=== PATIENT | male | born 1965 | race Caucasian/White ===

== ENCOUNTER 2016-08-02 08:03 | Outpatient (CLI) | payer BC | END 2016-08-02 08:04 | disposition home or self-care (01) | DX: E55.9 Vitamin D deficiency, unspecified (principal); I10 Essential (primary) hypertension; E03.9 Hypothyroidism, unspecified; R68.82 Decreased libido ==

== ENCOUNTER 2017-11-07 07:49 | Outpatient (CLI) | payer BC ==
[2017-11-07 12:01] LABS: BASOPHILS # (AUTO) 0.1 10^3/uL (0.0-0.1); EOSINOPHILS # (AUTO) 0.7 10^3/uL (0.0-0.7); EOSINOPHILS % (AUTO) 7.2 %; HGB - HEMOGLOBIN 15.6 g/dL (14.0-18.0); LYMPHOCYTES # (AUTO) 2.7 10^3/uL (1.5-3.5); LYMPHOCYTES % (AUTO) 26.5 %; MEAN CORPUSCULAR HEMOGLOBIN 30.6 pg (27.0-31.0); MEAN CORPUSCULAR HGB CONC 34.4 g/dL (32.0-36.0); MEAN CORPUSCULAR VOLUME 88.9 fL (80.0-94.0); MEAN PLATELET VOLUME 9.6 fL (7.4-11.4); MONOCYTES # (AUTO) 0.7 10^3/uL (0.0-1.0); MONOCYTES % (AUTO) 7.2 %; NEUTROPHILS % (AUTO) 58.1 %; PLT - PLATELET COUNT 439 10^3/uL (130-450); RED CELL DISTRIBUTION WIDTH 13.7 % (12.0-15.0); WHITE BLOOD COUNT 10.3 x10^3/uL (4.8-10.8)
[2017-11-07 12:19] LABS: ALBUMIN 4.4 g/dL (3.2-5.5); ALBUMIN/GLOBULIN RATIO 1.3 (1.0-2.2); BILIRUBIN,TOTAL 0.5 mg/dL (0.2-1.0); CALCIUM 9.2 mg/dL (8.5-10.3); CREATININE 0.8 mg/dL (0.6-1.2); TOTAL PROTEIN 7.7 g/dL (6.7-8.2)
[2017-11-07 12:31] LABS: PLATELET ESTIMATE, MANUAL NORMAL (130-450,000) (NORMAL); PLATELET MORPHOLOGY 1+ GIANT PLATELETS (NORMAL); RBC MORPHOLOGY (MULTIPLE) NORMAL APPEARANCE (NORMAL)
[2017-11-07 12:36] LABS: THYROID STIMULATING HORMONE 1.84 uIU/mL (0.34-5.60)
[2017-11-07 12:39] LABS: FREE T4 (FREE THYROXINE) 0.86 ng/dL (0.58-1.64)
== END 2017-11-07 07:50 | disposition home or self-care (01) ==
LOC: LAB.F 07:49
PROVIDERS: ATTEND Physician Assistant
DX: F41.9 Anxiety disorder, unspecified (principal); R68.82 Decreased libido; G47.00 Insomnia, unspecified
CPT/HCPCS: 36415; 80053; 81599; 84402; 84403; 84439; 84443; 85025

== ENCOUNTER 2018-09-09 11:23 | Outpatient (CLI) | payer BC | END 2018-09-09 11:24 | disposition home or self-care (01) | LOC: RT 11:23 | PROVIDERS: ATTEND Physician Assistant | DX: Z13.6 Encounter for screening for cardiovascular disorders (principal) | CPT/HCPCS: 93005 ==

== ENCOUNTER 2018-11-19 17:51 | Outpatient (CLI) | payer BC ==
--- NOTE | 2018-11-20 16:40 | XRAY Report ---
Reason: CERVICALGIA,LOW BACK PAIN Procedure Date: 11/19/2018 Accession Number: [id number] / [id number] Procedure: XR - Cervical Spine 2 View CPT Code: FULL RESULT: EXAM: CERVICAL SPINE RADIOGRAPHY EXAM DATE: 11/19/2018 06:11 PM. CLINICAL HISTORY: CERVICALGIA,LOW BACK PAIN. COMPARISONS: None available. TECHNIQUE: 3 views. FINDINGS: Alignment: Alignment within normal limits. Bones: The cervical vertebral bodies and posterior elements are well visualized from the skull base through C7-T1. No acute fractures are evident. There is partial fusion of C2 and C3. Disks: There is disk space narrowing with endplate sclerosis and small anterior endplate osteophytes at C5-C6 and C6-C7 levels. Facets: No significant degenerative disease. Soft Tissues: Normal. No prevertebral soft tissue swelling. The visualized lung apices are clear. IMPRESSION: 1. Degenerative disk disease at C5-C6 and C6-C7. 2. Partial fusion of C2 and C3, probably congenital. RADIA
--- NOTE | 2018-11-20 16:41 | XRAY Report ---
Reason: CERVICALGIA,LOW BACK PAIN Procedure Date: 11/19/2018 Accession Number: [id number] / [id number] Procedure: XR - Lumbar Spine 2 View CPT Code: FULL RESULT: EXAM: LUMBOSACRAL SPINE RADIOGRAPHY EXAM DATE: 11/19/2018 06:11 PM. CLINICAL HISTORY: CERVICALGIA,LOW BACK PAIN. COMPARISONS: None available. TECHNIQUE: 2 views. FINDINGS: Alignment: There is a slight convex left curvature with Garcia angle measuring approximately 6 degrees from the top of L1-L2 the bottom of L4. Bones: Five ggb-bir-pfydrig lumbar vertebral bodies are present. No fractures or bone lesions. Disks: Mild disk space narrowing at L5-S1. Facets: Mild facet hypertrophy at L4-L5 and L5-S1. Sacroiliac Joints: Unremarkable. Soft Tissues: Normal. The visualized bowel gas pattern is normal. IMPRESSION: 1. There is a slight convex left scoliotic curvature. 2. Mild degenerative disk disease and facet hypertrophy and lower lumbar spine. RADIA
== END 2018-11-19 17:52 | disposition home or self-care (01) ==
LOC: DI 17:51
PROVIDERS: ATTEND Physician Assistant
DX: M50.322 Other cervical disc degeneration at C5-C6 level (principal); M47.816 Spondylosis without myelopathy or radiculopathy, lumbar region; M51.37 Other intervertebral disc degeneration, lumbosacral region; M47.817 Spondylosis without myelopathy or radiculopathy, lumbosacral region
CPT/HCPCS: 72040; 72100

== ENCOUNTER 2019-03-01 10:20 | Outpatient (CLI) | payer BC ==
--- NOTE | 2019-03-03 00:42 | XRAY Report ---
Reason: MODERATE TO PERSISTANT ASTHMA Procedure Date: 03/01/2019 Accession Number: [id number] / [id number] Procedure: XR - Chest 2 View X-Ray CPT Code: 05854 FULL RESULT: EXAM: CHEST RADIOGRAPHY EXAM DATE: 03/01/2019 10:45 AM. CLINICAL HISTORY: MODERATE TO PERSISTANT ASTHMA. COMPARISON: None. TECHNIQUE: 2 views. FINDINGS: Lungs/Pleura: Minimal right base linear atelectasis or scarring. No consolidation, airspace disease, pleural effusion or pneumothorax. Posterior costophrenic angle excluded on the lateral view. Mediastinum: Heart and mediastinal contours are unremarkable. Other: A few mid T-spine anterior wedging of the vertebral bodies, appears chronic. IMPRESSION: No acute cardiopulmonary disease seen. RADIA
== END 2019-03-01 10:21 | disposition home or self-care (01) ==
LOC: DI 10:20
PROVIDERS: ATTEND Pediatrics
DX: J45.40 Moderate persistent asthma, uncomplicated (principal)
CPT/HCPCS: 71046

== ENCOUNTER 2019-03-11 14:10 | Outpatient (CLI) | payer BC | END 2019-03-11 14:11 | disposition short-term general hospital (02) | LOC: EMS 14:10 | PROVIDERS: ATTEND Surgery | DX: S06.9X9A Unspecified intracranial injury with loss of consciousness of unspecified duration, initial encounter (principal); S01.90XA Unspecified open wound of unspecified part of head, initial encounter; S81.802A Unspecified open wound, left lower leg, initial encounter; V29.40XA Motorcycle driver injured in collision with unspecified motor vehicles in traffic accident, initial encounter; Y92.413 State road as the place of occurrence of the external cause | CPT/HCPCS: A0425; A0433 ==

== ENCOUNTER 2021-07-17 18:07 | Outpatient (CLI) | payer OTHER | END 2021-07-17 18:08 | disposition critical access hospital (66) | LOC: EMS 18:07 | DX: M54.50 Low back pain, unspecified (principal); M79.605 Pain in left leg; W19.XXXA Unspecified fall, initial encounter; Y92.002 Bathroom of unspecified non-institutional (private) residence as the place of occurrence of the external cause | CPT/HCPCS: A0425; A0427 ==

== ENCOUNTER 2021-07-17 18:36 | Emergency (ER) | payer BC, OTHER ==
[2021-07-17] MEDS ORDERED: diazePAM INJ 5 MG/ML SYRINGE IVP STA (18:57)
[2021-07-17] MEDS ORDERED: KETOROLAC 30 MG/ML VIAL IVP STA (18:57)
--- NOTE | 2021-07-17 19:00 | ED Physician Documentation ---
History of Present Illness - Stated complaint Stated Complaint: LOWER BACK PAIN, CAN'T MOVE - Chief complaint Chief Complaint: Neuro - History obtained from History obtained from: Patient, EMS - History of Present Illness Timing: Today Pain level max: 10 Pain level now: 10 - Additonal information Additional information: Patient is a 56-year-old male who presents to the emergency department with back pain. He states that his short-term memory is poor secondary to a traumatic brain injury several years ago. His reported to EMS that she found him on the ground in the bathroom unable to get up. She states that she helped him up and placed him back into bed. He has been lying in bed all day but has been unable to get out of bed secondary to pain. He states he took a dose of oxycodone at home without relief. He states that the pain is radiating down the left leg. No loss of bowel or bladder control. Worse with movement, better with rest. Denies any head, neck, back pain other than the low back. No fevers. No recent illnesses. No chest pain. No shortness of breath. No IV drug use Review of Systems Ten Systems: 10 systems reviewed and negative Constitutional: denies: Fever, Chills Respiratory: denies: Cough GI: denies: Nausea, Vomiting, Diarrhea : denies: Dysuria, Frequency, Unable to Void, Incontinent Skin: denies: Rash Musculoskeletal: denies: Neck pain Neurologic: denies: Focal weakness, Numbness PD PAST MEDICAL HISTORY - Past Medical History Cardiovascular: Hypertension, Pulmonary embolism Respiratory: Asthma Neuro: Head injury, Other GI: GERD Psych: Depression, Anxiety - Past Surgical History Past Surgical History: Yes General: Splenectomy Ortho: Spine surgery, Other - Present Medications Home Medications: Ambulatory Orders Medication Instructions Recorded Confirmed Acetaminophen [Tylenol Extra 500 mg PO TID 08/06/19 08/06/19 Strength] Ascorbic Acid [Vitamin C] 500 mg PO DAILY 08/06/19 08/06/19 Fluticasone/Vilanterol [Breo 1 puffs PO DAILY 08/06/19 08/06/19 Ellipta 100-25 Mcg INH] Melatonin 6 mg PO QPM 08/06/19 08/06/19 Montelukast [Singulair] 10 mg PO DAILY 08/06/19 08/06/19 Omeprazole 20 mg PO DAILY 08/06/19 08/06/19 QUEtiapine [SEROquel] 200 mg PO QPM 08/06/19 08/06/19 Tiotropium [place] [Spiriva] 1 puffs PO DAILY 08/06/19 08/06/19 amLODIPine [Norvasc] 5 mg PO DAILY 08/06/19 08/06/19 - Allergies Allergies/Adverse Reactions: Allergies Allergy/AdvReac Type Severity Reaction Status Date / Time Skin prep AdvReac Rash Uncoded 08/06/19 09:40 - Social History Does the pt smoke?: Yes Smoking Status: Former smoker Does the pt drink ETOH?: Yes Does the pt have substance abuse?: No - Immunizations Immunizations are current?: Yes - POLST Patient has POLST: No PD ED PE NORMAL - Vitals Vital signs reviewed: Yes - General General: Alert and oriented X 3, No acute distress - HEENT HEENT: PERRL, Moist mucous membranes - Neck Neck: Supple, no meningeal sign - Cardiac Cardiac: RRR - Respiratory Respiratory: No respiratory distress, Clear bilaterally - Abdomen Abdomen: Normal bowel sounds, Soft, Non tender, Non distended - Back Back: No spinal TTP, Other (No midline tenderness to palpation or percussion. No step-off or deformity. Paraspinal spasm left lower lumbar.) - Derm Derm: Warm and dry - Extremities Extremities: No deformity - Neuro Neuro: Alert and oriented X 3, manager bar 2-12 intact, No motor deficit, No sensory deficit, Other (Normal bilateral lower extremity patellar and ankle jerk reflexes. Normal great toe extension bilaterally. no saddle anesthesia) Eye Opening: Spontaneous Motor: Obeys Commands Verbal: Oriented GCS Score: 15 - Psych Psych: Normal mood, Normal affect Results - Vitals Vitals: Vital Signs - 24 hr 07/17/21 07/17/21 07/17/21 18:41 19:27 19:30 Temperature 37.2 C Heart Rate 82 78 76 Respiratory 29 H 23 27 H Rate Blood Pressure 128/88 H 125/91 H 124/86 H O2 Saturation 92 94 93 07/17/21 07/17/21 07/17/21 20:00 20:30 21:00 Temperature Heart Rate 75 78 74 Respiratory 23 22 23 Rate Blood Pressure 115/88 H 130/91 H 122/82 H O2 Saturation 92 92 93 07/17/21 07/17/21 07/17/21 21:40 22:00 22:30 Temperature Heart Rate 80 75 75 Respiratory 20 24 22 Rate Blood Pressure 129/89 H 128/94 H 134/89 H O2 Saturation 94 92 91 L 07/17/21 07/17/21 07/17/21 23:01 23:18 23:30 Temperature Heart Rate 77 66 Respiratory 17 17 Rate Blood Pressure 137/97 H 134/88 H O2 Saturation 91 L 94 96 07/18/21 07/18/21 07/18/21 00:00 00:30 02:00 Temperature Heart Rate 72 68 66 Respiratory 19 17 15 Rate Blood Pressure 132/80 H 119/76 O2 Saturation 96 98 96 07/18/21 07/18/21 02:30 03:00 Temperature Heart Rate 66 67 Respiratory 17 17 Rate Blood Pressure 125/85 H 118/76 O2 Saturation 96 96 Oxygen O2 Source Nasal cannula - Labs Labs: Laboratory Tests 07/17/21 07/17/21 07/17/21 00:02 00:02 00:02 WBC 19.1 H RBC 5.02 Hgb 15.0 Hct 44.8 MCV 89.2 MCH 29.9 MCHC 33.5 RDW 14.6 Plt Count 359 MPV 10.3 Neut # (Auto) 17.5 H Lymph # (Auto) 1.0 L [place] # (Auto) 0.3 Eos # (Auto) 0.1 Baso # (Auto) 0.0 Absolute Nucleated RBC 0.00 Nucleated RBC % 0.0 PT 12.7 H INR 1.1 Sodium 136 Potassium 4.1 Chloride 102 Carbon Dioxide 24 Anion Gap 10.0 BUN 14 Creatinine 0.8 Estimated GFR (MDRD) 100 Glucose 162 H Calcium 8.9 Total Bilirubin 1.1 H AST 68 H ALT 45 Alkaline Phosphatase 84 Total Protein 8.0 Albumin 4.1 Globulin 3.9 Albumin/Globulin Ratio 1.1 Nasal Adenovirus (PCR) Nasal B. parapertussis DNA (PCR) Nasal Coronavir 229E PCR Nasal Coronavir HKU1 PCR Nasal Coronavir NL63 PCR Nasal Coronavir OC43 PCR Nasal Enterovir/Rhinovir PCR Nasal Influenza B PCR Nasal Influenza A PCR Nasal Parainfluen 1 PCR Nasal Parainfluen 2 PCR Nasal Parainfluen 3 PCR Nasal Parainfluen 4 PCR Nasal RSV (PCR) Nasal B.pertussis DNA PCR Nasal C.pneumoniae (PCR) Yon Human Metapneumo PCR Nasal M.pneumoniae (PCR) Nasal SARS-CoV-2 (PCR) Blood Type Antibody Screen 07/17/21 07/18/21 00:02 01:27 WBC RBC Hgb Hct MCV MCH MCHC RDW Plt Count MPV Neut # (Auto) Lymph # (Auto) [place] # (Auto) Eos # (Auto) Baso # (Auto) Absolute Nucleated RBC Nucleated RBC % PT INR Sodium Potassium Chloride Carbon Dioxide Anion Gap BUN Creatinine Estimated GFR (MDRD) Glucose Calcium Total Bilirubin AST ALT Alkaline Phosphatase Total Protein Albumin Globulin Albumin/Globulin Ratio Nasal Adenovirus (PCR) NOT DETECTED Nasal B. parapertussis DNA (PCR) NOT DETECTED Nasal Coronavir 229E PCR NOT DETECTED Nasal Coronavir HKU1 PCR NOT DETECTED Nasal Coronavir NL63 PCR NOT DETECTED Nasal Coronavir OC43 PCR NOT DETECTED Nasal Enterovir/Rhinovir PCR NOT DETECTED Nasal Influenza B PCR NOT DETECTED Nasal Influenza A PCR NOT DETECTED Nasal Parainfluen 1 PCR NOT DETECTED Nasal Parainfluen 2 PCR NOT DETECTED Nasal Parainfluen 3 PCR NOT DETECTED Nasal Parainfluen 4 PCR NOT DETECTED Nasal RSV (PCR) NOT DETECTED Nasal B.pertussis DNA PCR NOT DETECTED Nasal C.pneumoniae (PCR) NOT DETECTED Yon Human Metapneumo PCR NOT DETECTED Nasal M.pneumoniae (PCR) NOT DETECTED Nasal SARS-CoV-2 (PCR) NOT DETECTED Blood Type A POSITIVE Antibody Screen NEGATIVE - Rads (name of study) Lumbar spine x-ray Radiology: Final report received, EMP read contemporaneously, See rad report (No acute abnormality) PD MEDICAL DECISION MAKING - ED course Complexity details: reviewed results, re-evaluated patient, considered differential (No cauda equina, no spinal epidural abscess, no fracture, no aortic dissection or evidence of aneursym rupture), d/w patient ED course: No acute findings on x-ray. Symptoms consistent with sciatica. No evidence of cauda equina, epidural abscess. Patient is continuing to have back pain. Patient will be signed out to Dr. Larsen for further evaluation and care. Please see his note for final disposition. This document was made in part using voice recognition software. While efforts are made to proofread this document, sound alike and grammatic Departure - Departure Disposition: 02 Transfer Acute Care Hosp Clinical Impression: Sciatica of left side Condition: Good Discharge Date/Time: 07/18/21 03:42
[2021-07-17] MEDS ORDERED: DEXAMETHASONE 10 MG/ML VIAL IVP STA (19:41)
[2021-07-17] MEDS ORDERED: MORPHINE 2 MG/ML CARPUJECT IVP STA (19:41)
--- NOTE | 2021-07-17 21:14 | XRAY Report ---
PROCEDURE: Lumbar Spine 2 View INDICATIONS: fall, back pain, h/o back fractures TECHNIQUE: 3 views of the lumbar spine were acquired. COMPARISON: None. FINDINGS: Exam limited by patient body habitus and bowel gas. There is no obvious loss of vertebral body height on the lateral views of the lumbar spine. Alignment is normal. IMPRESSION: No plain radiographic evidence of fracture. If there is continued clinical concern, CT o f the lumbar spine recommended. Reviewed by: Emmett Crump MD on 07/17/2021 9:13 PM PST Approved by: Emmett Crump MD on 07/17/2021 9:13 PM PST Station ID: [id number]
[2021-07-17] MEDS ORDERED: HYDROmorphone 1 MG/ML CARPUJECT IVP STA ×2 (21:47→22:40)
--- NOTE | 2021-07-17 23:26 | CT Report ---
PROCEDURE: LUMBAR SPINE WO INDICATIONS: back injury TECHNIQUE: Noncontrast 3 mm thick sections acquired from the T12 level to the sacrum. Sagittal and coronal refo rmats were constructed. For radiation dose reduction, the following was used: automated exposure co ntrol, adjustment of mA and/or kV according to patient size. COMPARISON: None. FINDINGS: Acute compression fractures at L3, T12, and T11, all with less than 20% height loss. No significant o sseous retropulsion. There is also a possible acute superior endplate compression fracture at L5 with less than 10% height loss. Partially visualized left iliac wing fracture which is displaced. Partially visualized fluid versus hemorrhage versus fat stranding in the left abdomen and left retrop eritoneum. Partially visualized nondilated small bowel loops measuring up to 4.8 cm. IMPRESSION: Acute compression fractures at L3, T12, and T11 and possibly at L5. Partially visualized displaced left iliac wing fracture. Partially visualized hemorrhage versus fluid versus fat stranding in the left mid abdomen and left re troperitoneum. Partially visualized nondilated small bowel loops measuring up to 4.[address] of the chest, abdomen, and pelvis with IV contrast recommended given the multiple injuries and inj ury mechanism. Consider a CT of the head and cervical spine also. Reviewed by: Emmett Crump MD on 07/17/2021 11:24 PM PST Approved by: Emmett Crump MD on 07/17/2021 11:24 PM PST Station ID: [id number]
--- NOTE | 2021-07-17 23:32 | ED Physician Documentation ---
ED Addendum - Addendum Addendum: 07/17/21 23:[address] Rodriguez at shift change. Briefly this is a 56-year-old gentleman with history of remote multisystem trauma who presents with severe back pain after a fall. On my evaluation he had already had x-rays which were unremarkable. He was having a lot of pain and basically could not move due to the pain and was administered divided doses of pain medications with minimal improvement. I sent him over for a CT of the lumbar spine showing acute compression fractures of L3, T12, T11, and possibly T5. There was a partially visualized displaced the left iliac wing fracture and concern for left abdominal and left retroperitoneal hemorrhage. CT "mcdonald scan" ordered as well as labs. 07/18/21 01:25 My "wet read" of his CTs demonstrates a left acetabular fracture, left retroperitoneal hematoma though looks stable from prior L-spine CT, left iliac fracture, multiple spinal fractures. My suspicion is since the patient does not actually remember falling it must of been a little more of a major mechanism than initially thought on arrival. I discussed this with his by phone who said she basically just found him on the ground and did not witness the fall. I discussed his disposition to [facility] for multisystem trauma. And she was agreeable. Of note he did have a contrast extravasation into the right antecubital fossa during CT. I am keeping an eye on this but does not look tense, just mildly red at this point. 07/18/21 01:53 Accepted to [facility] ED by Dr. León Blanton at approximately 1:53 AM and cobras are completed. He is stable for transport. Final CT reads showing both retroperitoneal and intra-abdominal free fluid and acute compression fractures of T11, T12, L3, and L5 without more than 20% height loss or spinal stenosis/retropulsion, he also has acute displaced fractures of the left iliac bone, left acetabulum and left superior pubic ramus. Disposition: Transferred to [facility] trauma center Condition guarded but stable Diagnoses: 1. Multiple spinal fractures 2. Left acetabular fracture 3. Left iliac fracture 4. Left retroperitoneal hematoma. 07/18/21 01:58 07/18/21 04:56
[2021-07-18 00:06] LABS: BASOPHILS % (AUTO) 0.2 %; EOSINOPHILS # (AUTO) 0.1 10^3/uL (0.0-0.7); EOSINOPHILS % (AUTO) 0.5 %; HCT - HEMATOCRIT 44.8 % (42.0-52.0); LYMPHOCYTES % (AUTO) 5.4 %; MEAN CORPUSCULAR HEMOGLOBIN 29.9 pg (27.0-31.0); MEAN CORPUSCULAR HGB CONC 33.5 g/dL (32.0-36.0); MEAN CORPUSCULAR VOLUME 89.2 fL (80.0-94.0); MEAN PLATELET VOLUME 10.3 fL (7.4-11.4); MONOCYTES # (AUTO) 0.3 10^3/uL (0.0-1.0); MONOCYTES % (AUTO) 1.5 %; NEUTROPHILS # (AUTO) 17.5 10^3/uL (1.5-6.6); NEUTROPHILS % (AUTO) 91.9 %; PLT - PLATELET COUNT 359 10^3/uL (130-450); RED BLOOD COUNT 5.02 10^6/uL (4.70-6.10); RED CELL DISTRIBUTION WIDTH 14.6 % (12.0-15.0); WHITE BLOOD COUNT 19.1 x10^3/uL (4.8-10.8)
[2021-07-18 00:10] LABS: INR 1.1 (0.8-1.2); PT - PROTHROMBIN TIME 12.7 secs (9.9-12.6)
[2021-07-18 00:20] LABS: ALBUMIN 4.1 g/dL (3.2-5.5); ALBUMIN/GLOBULIN RATIO 1.1 (1.0-2.2); BILIRUBIN,TOTAL 1.1 mg/dL (0.2-1.0); CALCIUM 8.9 mg/dL (8.5-10.3); CREATININE 0.8 mg/dL (0.6-1.2); POTASSIUM 4.1 mmol/L (3.5-5.0)
[2021-07-18] MEDS ORDERED: iohexoL-300 100 ML VIAL ONE (00:43)
[2021-07-18] MEDS ORDERED: iohexoL-300 100 ML VIAL IVP ONE (01:34)
--- NOTE | 2021-07-18 01:47 | CT Report ---
PROCEDURE: CHEST W INDICATIONS: multisystem trauma CONTRAST: IV CONTRAST: Isovue 300 ml: 100 PO CONTRAST: *NO PO CONTRAST TECHNIQUE: After the administration of intravenous contrast, 1 mm axial images were acquired from the pulmonary apices through the posterior costophrenic angles. Axial 5 mm soft tissue kernel reconstructions were performed as well as 8 mm axial MIP and coronal and sagittal 5 mm reformations. For radiation dose reduction, the following was used: automated exposure control, adjustment of mA and/or kV according to patient size. COMPARISON: None. FINDINGS: Image quality: Excellent. Lungs and pleura: Bibasilar and posterior dependent atelectasis. No acute air space opacities. No p leural effusions or pneumothorax. Central and peripheral airways are patent and normal in caliber. Mediastinum: Heart size is normal. No pericardial effusion. No mediastinal or hilar adenopathy by size criteria. Thoracic aorta and central pulmonary arteries are normal in size. Esophagus is aure l in caliber. No hiatal hernia. Bones and chest wall: Acute compression fractures of the T11 and T12 vertebral bodies otherwise intac t bones. IMPRESSION: T11 and T12 compression fractures, both acute and without significant associated retropulsion or spin al canal stenosis. No other acute fracture or acute finding in the chest. Reviewed by: Emmett Crump MD on 07/18/2021 1:45 AM PST Approved by: Emmett Crump MD on 07/18/2021 1:45 AM PST Station ID: [id number]
--- NOTE | 2021-07-18 01:54 | CT Report ---
PROCEDURE: Abdomen/Pelvis W INDICATIONS: multisystem trauma CONTRAST: IV CONTRAST: Isovue 300 ml: 100 PO CONTRAST: *NO PO CONTRAST TECHNIQUE: After the administration of intravenous contrast, 5 mm thick sections acquired from the diaphragms to the symphysis. 5 mm thick coronal and sagittal reformats were acquired. For radiation dose reducti on, the following was used: automated exposure control, adjustment of mA and/or kV according to aurelio ent size. COMPARISON: None. FINDINGS: Acute displaced fracture of the left iliac bone involving the left iliac wing, extending inferiorly a nd ramifying in the left acetabulum into a complex and comminuted left acetabular fracture. Fracture plane also extends into the superior pubic ramus on the left. There is a remote left inferior pubic r amus fracture. No right-sided pelvic fracture. The sacrum is intact. Acute compression deformities at T11, T12, L3, and L5, none was greater than 20% height loss or signi ficant associated osseous retropulsion. Intermediate density fluid collection in the left hemipelvis is presumably related to the acetabular fracture. Adjacent fat stranding is also presumably related. An acute enteric/intestinal injury canno t be strictly excluded. There is no pneumoperitoneum. The duodenum is mildly dilated measuring up to 5 cm. Remaining enteric tract is normal. No acute solid organ injury identified. IMPRESSION: Acute compression fractures at T11, T12, L3, and L5, none with greater than 20% height loss or associ ated retropulsion/spinal canal stenosis. Acute displaced fractures of the left iliac bone, left acetabulum, and left superior pubic ramus. Intermediate density fluid collection in the left hemipelvis with a small volume of free fluid in the central inferior abdomen. Some of this is likely related to the pelvic fracture although some of the free fluid and fat stranding is definitely intraperitoneal and raises concern for an acute occult radha wel injury. Correlate with injury mechanism and any abdominal point tenderness. Reviewed by: Emmett Crump MD on 07/18/2021 1:53 AM PST Approved by: Emmett Crump MD on 07/18/2021 1:53 AM PST Station ID: [id number]
--- NOTE | 2021-07-18 01:55 | CT Report ---
PROCEDURE: HEAD WO INDICATIONS: Multisystem trauma TECHNIQUE: Noncontrast 4.5 mm thick angled axial sections acquired from the foramen magnum to the vertex. For r adiation dose reduction, the following was used: automated exposure control, adjustment of mA and/or kV according to patient size. COMPARISON: None. FINDINGS: Image quality: Excellent. CSF spaces: Basal cisterns are patent. No extra-axial fluid collections. Ventricles are normal in size and shape. 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 No midline shift. No intracran ial masses or hemorrhage. Durán-white matter interface is normal. Skull and face: Calvarium and visualized facial bones are intact, without suspicious lesions. Sinuses: Visualized sinuses and mastoids are clear. IMPRESSION: No acute intracranial abnormality. Reviewed by: Emmett Crump MD on 07/18/2021 1:53 AM PST Approved by: Emmett Curmp MD on 07/18/2021 1:53 AM [facility] Station ID: [id number]
--- NOTE | 2021-07-18 01:56 | CT Report ---
PROCEDURE: CERVICAL SPINE WO INDICATIONS: multisystem trauma TECHNIQUE: Noncontrast 3 mm thick sections acquired from the skull base to the T4 level. Sagittal and coronal r eformats were then constructed. For radiation dose reduction, the following was used: automated exp osure control, adjustment of mA and/or kV according to patient size. COMPARISON: None. FINDINGS: C2-T2 posterior fixation changes by means of bilateral rods and pedicle screws. No acute complicating hardware feature. No acute fracture or malalignment. Extensive moderate degenerative changes. IMPRESSION: No CT evidence of acute traumatic cervical spine injury. Reviewed by: Emmett Crump MD on 07/18/2021 1:55 AM PST Approved by: Emmett Crump MD on 07/18/2021 1:55 AM [facility] Station ID: [id number]
[2021-07-18 02:20] LABS: B. PARAPERTUSSIS- RESP PCR PAN NOT DETECTED; B. PERTUSSIS- RESP PCR PANEL NOT DETECTED; C. PNEUMONIAE- RESP PCR PANEL NOT DETECTED; CORONAVIRUS 229E-RESP PCR NOT DETECTED; CORONAVIRUS HKU1-RESP PCR NOT DETECTED; CORONAVIRUS NL63-RESP PCR NOT DETECTED; CORONAVIRUS OC43-RESP PCR NOT DETECTED; HUMAN METAPNEUMOVIRUS NOT DETECTED; INFLUENZA A- RESP PCR PANEL NOT DETECTED; INFLUENZA B - RESP PCR PANEL NOT DETECTED; M. PNEUMONIAE- RESP PCR PANEL NOT DETECTED; PARAINFLUENZA VIRUS 1 NOT DETECTED; PARAINFLUENZA VIRUS 2 NOT DETECTED; PARAINFLUENZA VIRUS 3 NOT DETECTED; PARAINFLUENZA VIRUS 4 NOT DETECTED; RHINOVIRUS/ENTEROVIRUS NOT DETECTED; RSV- RESP PCR PANEL NOT DETECTED; SARS-CoV-2 -RESP PCR PANEL NOT DETECTED
[2021-07-18 03:21] VITALS: BP 118/76
== END 2021-07-18 03:42 | disposition short-term general hospital (02) ==
LOC: EDUNIT# → ED 18:36
DX: S32.039A Unspecified fracture of third lumbar vertebra, initial encounter for closed fracture (principal); S22.089A Unspecified fracture of T11-T12 vertebra, initial encounter for closed fracture; S32.402A Unspecified fracture of left acetabulum, initial encounter for closed fracture; S32.302A Unspecified fracture of left ilium, initial encounter for closed fracture; S36.892A Contusion of other intra-abdominal organs, initial encounter; S32.592A Other specified fracture of left pubis, initial encounter for closed fracture; W19.XXXA Unspecified fall, initial encounter; M54.32 Sciatica, left side; Z87.891 Personal history of nicotine dependence; Z87.820 Personal history of traumatic brain injury; Z20.822 Contact with and (suspected) exposure to COVID-19
CPT/HCPCS: 0202U; 36415; 70450; 71260; 72100; 72125; 72131; 74177; 80053; 85025; 85610; 86850; 86900; 86901; 96374; 96375; 96376; 99285; J1170; Q9967

== ENCOUNTER 2021-07-18 03:45 | Outpatient (CLI) | payer OTHER | END 2021-07-18 03:46 | disposition short-term general hospital (02) | LOC: EMS 03:45 | PROVIDERS: ATTEND Emergency Medicine | DX: S22.089A Unspecified fracture of T11-T12 vertebra, initial encounter for closed fracture (principal); S32.039A Unspecified fracture of third lumbar vertebra, initial encounter for closed fracture; S32.302A Unspecified fracture of left ilium, initial encounter for closed fracture; W19.XXXA Unspecified fall, initial encounter | CPT/HCPCS: A0425; A0428 ==

== ENCOUNTER 2021-09-17 11:36 | Outpatient (CLI) | payer MEDICARE | END 2021-09-17 11:37 | disposition home or self-care (01) | LOC: LAB.S 11:36 | DX: I82.419 Acute embolism and thrombosis of unspecified femoral vein (principal) | CPT/HCPCS: 36415; 81599; 85613; 85730; 86146; 86147; 86148 ==

== ENCOUNTER 2022-07-26 04:27 | Outpatient (CLI) | payer MEDICARE | END 2022-07-26 04:28 | disposition critical access hospital (66) | LOC: EMS 04:27 | DX: R56.9 Unspecified convulsions (principal) | CPT/HCPCS: A0425; A0429 ==

== ENCOUNTER 2022-07-26 04:55 | Observation (INO) | payer MEDICARE ==
--- NOTE | 2022-07-26 04:55 | ED Physician Documentation ---
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 Patient is unable to contribute reliably to HPI/ROS due to AMS. Later in ED stay, I also obtained HPI from patient's (I contacted her by phone). Patient is brought in for new onset seizure. The HPI information from EMS as well as the is as follows: Patient and his were in bed asleep and approximately 30 to 40 minutes prior to arrival, patient's heard the patient get up to use the bathroom, and then he returned to bed. Patient's states she started to fall back asleep but approximately 15 to 20 minutes after he had returned back to bed, she woke to gurgling noises that the patient was making And she turned on the light and found that the patient was in bed lying on his side unresponsive. She says his eyes were "wide open" but that he was not making any eye contact more purposeful gaze. She says she tried to roll him onto his back but felt that his body was "not relaxed". She called 911 and just that she was doing this, she noted that the patient started to exhibit full body rhythmic shaking; her description is consistent with generalized tonic-clonic seizure. She says the shaking activity lasted approximately 3 to 5 minutes and then stopped spontaneously. EMS arrived and they describe initially sonorous respirations and stable vital signs but patient was unresponsive. As they continue their assessment, the patient started to make purposeful movements; specifically, the patient started to grab at EMS and seemed to be resisting some of their attempts to get him into the ambulance, and on route to the emergency department, they note that he gradually became more awake and alert. Temperature by EMS was 97.8, fingerstick blood sugar was 136. EMS did note that patient was incontinent of urine and feces. Patient noted to be hypoxic for EMS on room air (mid-80s pulse ox), corrects to low/mid 90s with 4 liters NC. On arrival, the oxygen was stopped temporarily to confirm hypoxia, and patient did quickly desaturate to 85 to 86% on room air and thus was restarted on 4 L nasal cannula oxygen; this resulted in a rapid return to 92 to 93% pulse ox. Patient is still confused on arrival to ED; he does not recall events, says he does not take any prescription medications. His chief complaint, and his only complaint, is "pain everywhere". Per my conversation with the patient's , patient does not drink heavily nor on a regular basis; she says he occasionally has a glass of wine with dinner. She confirms that he has no seizure history. He does not have any pulmonary diagnoses, does not use oxygen at home. PD PAST MEDICAL HISTORY - Past Medical History Past Medical History: Yes Cardiovascular: Deep vein thrombosis, Pulmonary embolism Neuro: Other (TBI) - Present Medications Home Medications: Ambulatory Orders Medication Instructions Recorded Confirmed Acetaminophen [Tylenol Extra 500 mg PO TID 08/06/19 08/06/19 Strength] Ascorbic Acid [Vitamin C] 500 mg PO DAILY 08/06/19 08/06/19 Melatonin 6 mg PO QPM 08/06/19 08/06/19 Montelukast [Singulair] 10 mg PO DAILY 08/06/19 08/06/19 Omeprazole 20 mg PO DAILY 08/06/19 08/06/19 QUEtiapine [SEROquel] 200 mg PO QPM 08/06/19 08/06/19 Apixaban [Eliquis] 5 mg PO BID 07/26/22 07/26/22 Gabapentin [Neurontin] 300 mg PO TID 07/26/22 07/26/22 methocarbamoL [Methocarbamol] 500 mg PO TID 07/26/22 07/26/22 - Allergies Allergies/Adverse Reactions: Allergies Allergy/AdvReac Type Severity Reaction Status Date / Time Skin prep AdvReac Rash Uncoded 07/26/22 05:06 - Living Situation Living Situation: reports: With spouse/s.o. Living Arrangement: reports: At home PD ED PE NORMAL - Vitals Vital signs reviewed: Yes - General General: Other (obese male, NAD, confused. awake, alert, oriented x 1 (to self)) - HEENT HEENT: Moist mucous membranes, Other (left anterolateral surface of tongue with bite/abrasion) - Neck Neck: Supple, no meningeal sign, No bony TTP - Cardiac Cardiac: RRR, No murmur - Respiratory Respiratory: No respiratory distress, Other (bibasilar rhonchi; good air flow, no wheezing) - Abdomen Abdomen: Soft, Non tender - Derm Derm: Normal color, Warm and dry - Extremities Extremities: No edema - Neuro Eye Opening: Spontaneous Motor: Obeys Commands Verbal: Confused GCS Score: 14 Results - Vitals Vitals: Vital Signs - 24 hr 07/26/22 07/26/22 07/26/22 04:59 05:09 05:13 Temperature 36.6 C Heart Rate 104 H 96 Respiratory 22 25 H Rate Blood Pressure 139/92 H 136/91 H O2 Saturation 86 L If not protocol 4 : Oxygen Flow, liters/minute 07/26/22 07/26/22 07/26/22 06:47 07:00 08:18 Temperature Heart Rate 91 92 98 Respiratory 12 21 23 Rate Blood Pressure 125/76 111/84 H 120/92 H O2 Saturation 96 94 92 If not protocol 4 4.5 2 : Oxygen Flow, liters/minute 07/26/22 07/26/22 07/26/22 09:30 09:42 09:50 Temperature Heart Rate 102 H 100 Respiratory 20 24 Rate Blood Pressure 130/89 H O2 Saturation 92 87 L 92 If not protocol 2 : Oxygen Flow, liters/minute 07/26/22 10:12 Temperature Heart Rate 97 Respiratory 18 Rate Blood Pressure 131/93 H O2 Saturation 93 If not protocol : Oxygen Flow, liters/minute Oxygen O2 Source Nasal cannula Oxygen Flow Rate 2 - EKG (time done) No standard instances Rate: Rate (enter#) (100) Rhythm: NSR [place]: Normal Intervals: Normal UT QRS: Normal Ischemia: Normal ST segments, Q waves (V1-V3) - Labs Labs: Laboratory Tests 07/26/22 07/26/22 07/26/22 05:02 05:02 05:02 WBC 22.2 H RBC 5.03 Hgb 15.4 Hct 46.5 MCV 92.4 MCH 30.6 MCHC 33.1 RDW 14.8 Plt Count 352 MPV 10.2 Neut # (Auto) Not Reportable Lymph # (Auto) Not Reportable [place] # (Auto) Not Reportable Eos # (Auto) Not Reportable Baso # (Auto) Not Reportable Absolute Nucleated RBC Not Reportable Total Counted 100 Band Neuts % (Manual) 2 Abnorm Lymph % (Manual) 0 Myelocytes % 1 H Nucleated RBC % Not Reportable Neutrophils # (Manual) 16.0 H Lymphocytes # (Manual) 2.9 Monocytes # (Manual) 2.2 H Eosinophils # (Manual) 0.9 H Basophils # (Manual) 0.0 Differential Comment MANUAL DIFFERENTIAL WBC Morphology NORMAL APPEARANCE Platelet Estimate NORMAL (130-450,000) Platelet Morphology NORMAL APPEARANCE RBC Morph Micro Appear NORMAL APPEARANCE Sodium 140 Potassium 3.3 L Chloride 106 Carbon Dioxide 22 Anion Gap 12.0 BUN 15 Creatinine 1.0 Estimated GFR (MDRD) 77 L Glucose 147 H Calcium 8.5 Total Bilirubin 0.6 AST 33 ALT 38 Alkaline Phosphatase 98 Troponin I High Sens B-Natriuretic Peptide Total Protein 7.3 Albumin 3.8 Globulin 3.5 Albumin/Globulin Ratio 1.1 Lipase 33 TSH 4.79 Urine Color Urine Clarity Urine pH Ur Specific [place] Urine Protein Urine Glucose (UA) Urine Ketones Urine Occult Blood Urine Nitrite Urine Bilirubin Urine Urobilinogen Ur Leukocyte Esterase Ur Microscopic Review Urine Culture Comments Nasal Adenovirus (PCR) Nasal B. parapertussis DNA (PCR) Nasal Coronavir 229E PCR Nasal Coronavir HKU1 PCR Nasal Coronavir NL63 PCR Nasal Coronavir OC43 PCR Nasal Enterovir/Rhinovir PCR Nasal Influenza B PCR Nasal Influenza A PCR Nasal Parainfluen 1 PCR Nasal Parainfluen 2 PCR Nasal Parainfluen 3 PCR Nasal Parainfluen 4 PCR Nasal RSV (PCR) Nasal B.pertussis DNA PCR Nasal C.pneumoniae (PCR) Yon Human Metapneumo PCR Nasal M.pneumoniae (PCR) Nasal SARS-CoV-2 (PCR) Urine Opiates Screen Ur Oxycodone Screen Urine Methadone Screen Ur Propoxyphene Screen Ur Barbiturates Screen Ur Tricyclics Screen Ur Phencyclidine Scrn Ur Amphetamine Screen U Methamphetamines Scrn U Benzodiazepines Scrn Urine Cocaine Screen U Cannabinoids Screen Ethyl Alcohol < 5.0 07/26/22 07/26/22 07/26/22 05:02 05:02 08:10 WBC RBC Hgb Hct MCV MCH MCHC RDW Plt Count MPV Neut # (Auto) Lymph # (Auto) [place] # (Auto) Eos # (Auto) Baso # (Auto) Absolute Nucleated RBC Total Counted Band Neuts % (Manual) Abnorm Lymph % (Manual) Myelocytes % Nucleated RBC % Neutrophils # (Manual) Lymphocytes # (Manual) Monocytes # (Manual) Eosinophils # (Manual) Basophils # (Manual) Differential Comment WBC Morphology Platelet Estimate Platelet Morphology RBC Morph Micro Appear Sodium Potassium Chloride Carbon Dioxide Anion Gap BUN Creatinine Estimated GFR (MDRD) Glucose Calcium Total Bilirubin AST ALT Alkaline Phosphatase Troponin I High Sens 39.9 H* B-Natriuretic Peptide 10 Total Protein Albumin Globulin Albumin/Globulin Ratio Lipase TSH Urine Color Urine Clarity Urine pH Ur Specific [place] Urine Protein Urine Glucose (UA) Urine Ketones Urine Occult Blood Urine Nitrite Urine Bilirubin Urine Urobilinogen Ur Leukocyte Esterase Ur Microscopic Review Urine Culture Comments Nasal Adenovirus (PCR) NOT DETECTED Nasal B. parapertussis DNA (PCR) NOT DETECTED Nasal Coronavir 229E PCR NOT DETECTED Nasal Coronavir HKU1 PCR NOT DETECTED Nasal Coronavir NL63 PCR NOT DETECTED Nasal Coronavir OC43 PCR NOT DETECTED Nasal Enterovir/Rhinovir PCR NOT DETECTED Nasal Influenza B PCR NOT DETECTED Nasal Influenza A PCR NOT DETECTED Nasal Parainfluen 1 PCR NOT DETECTED Nasal Parainfluen 2 PCR NOT DETECTED Nasal Parainfluen 3 PCR NOT DETECTED Nasal Parainfluen 4 PCR NOT DETECTED Nasal RSV (PCR) NOT DETECTED Nasal B.pertussis DNA PCR NOT DETECTED Nasal C.pneumoniae (PCR) NOT DETECTED Yon Human Metapneumo PCR NOT DETECTED Nasal M.pneumoniae (PCR) NOT DETECTED Nasal SARS-CoV-2 (PCR) NOT DETECTED Urine Opiates Screen Ur Oxycodone Screen Urine Methadone Screen Ur Propoxyphene Screen Ur Barbiturates Screen Ur Tricyclics Screen Ur Phencyclidine Scrn Ur Amphetamine Screen U Methamphetamines Scrn U Benzodiazepines Scrn Urine Cocaine Screen U Cannabinoids Screen Ethyl Alcohol 07/26/22 10:10 WBC RBC Hgb Hct MCV MCH MCHC RDW Plt Count MPV Neut # (Auto) Lymph # (Auto) [place] # (Auto) Eos # (Auto) Baso # (Auto) Absolute Nucleated RBC Total Counted Band Neuts % (Manual) Abnorm Lymph % (Manual) Myelocytes % Nucleated RBC % Neutrophils # (Manual) Lymphocytes # (Manual) Monocytes # (Manual) Eosinophils # (Manual) Basophils # (Manual) Differential Comment WBC Morphology Platelet Estimate Platelet Morphology RBC Morph Micro Appear Sodium Potassium Chloride Carbon Dioxide Anion Gap BUN Creatinine Estimated GFR (MDRD) Glucose Calcium Total Bilirubin AST ALT Alkaline Phosphatase Troponin I High Sens B-Natriuretic Peptide Total Protein Albumin Globulin Albumin/Globulin Ratio Lipase TSH Urine Color DARK YELLOW Urine Clarity CLEAR Urine pH 6.0 Ur Specific [place] 1.020 Urine Protein NEGATIVE Urine Glucose (UA) NEGATIVE Urine Ketones TRACE Urine Occult Blood TRACE-INTA Urine Nitrite NEGATIVE Urine Bilirubin NEGATIVE Urine Urobilinogen 0.2 (NORMAL) Ur Leukocyte Esterase NEGATIVE Ur Microscopic Review NOT INDICATED Urine Culture Comments NOT INDICATED Nasal Adenovirus (PCR) Nasal B. parapertussis DNA (PCR) Nasal Coronavir 229E PCR Nasal Coronavir HKU1 PCR Nasal Coronavir NL63 PCR Nasal Coronavir OC43 PCR Nasal Enterovir/Rhinovir PCR Nasal Influenza B PCR Nasal Influenza A PCR Nasal Parainfluen 1 PCR Nasal Parainfluen 2 PCR Nasal Parainfluen 3 PCR Nasal Parainfluen 4 PCR Nasal RSV (PCR) Nasal B.pertussis DNA PCR Nasal C.pneumoniae (PCR) [place] Human Metapneumo PCR Nasal M.pneumoniae (PCR) Nasal SARS-CoV-2 (PCR) Urine Opiates Screen POSITIVE H Ur Oxycodone Screen NEGATIVE Urine Methadone Screen NEGATIVE Ur Propoxyphene Screen NEGATIVE Ur Barbiturates Screen NEGATIVE Ur Tricyclics Screen POSITIVE H Ur Phencyclidine Scrn NEGATIVE Ur Amphetamine Screen NEGATIVE U Methamphetamines Scrn NEGATIVE U Benzodiazepines Scrn NEGATIVE Urine Cocaine Screen NEGATIVE U Cannabinoids Screen POSITIVE H Ethyl Alcohol - Rads (name of study) C[facility] Radiology: Prelim report reviewed, See rad report CTA chest Radiology: Prelim report reviewed, See rad report PD Medical Decision Making - ED course Complexity details: reviewed old records, reviewed results, re-evaluated patient, considered differential, d/w patient, d/w family ED course: Tests ordered and results reviewed by me: CBC, ER abdominal panel, troponin, urine drug screen, serum ethanol level, EKG. Radiology studies ordered: CT head, CTA chest. Most notable abnormalities on blood tests are white blood cell count of 22.3, High-sensitivity troponin 39.9. He has mild hypokalemia with potassium of 3.3. No acute findings on EKG; Q waves are noted in V1 through V3. Early in his stay he seemed to still be postictal: He exhibited confusion, occasionally would argue about some tests such as initially refusing CAT scan, and insisted that chest x-ray only be performed if he is allowed to stay lying flat in the stretcher. As noted above, his only complaint is full body pain. He is given 4 mg IV morphine for this and appeared much more comfortable and reported improvement in the pain. As he became more oriented and comfortable, he was agreeable to CT of his head. Because of abnormalities on the chest x- ray, a CTA of the chest was also performed. The chest x-ray is interpreted by the radiologist as cardiomegaly with perihilar interstitial and airspace opacities which may indicate edema or pneumonia. This represents a pronounced change from the prior examination and if clinically warranted CT of the chest could be considered to further evaluate. CT chest is interpreted as 1. No pulmonary embolus 2. coronary artery disease. 3. mild bibasilar atelectasis versus pneumonia. Patient did not exhibit any seizure activity for the remainder of his ED stay which was over 6 hours. Additionally, he continued to improve and his mentation and eventually was able to recall his prescription medications, as well as what they were prescribed for. Patient's tells me that due to history of TBI, he does have a well- established problem with short-term memory. I made several attempts to discontinue the nasal cannula oxygen, and he would consistently and rapidly (within 60 to 90 seconds) desaturate to 85 to 86% on room air. This did correlate with complaint of increasing dyspnea. His pulse ox did not improve when I had him take deep breaths. However, with resumption of 2 L nasal cannula oxygen, he would return to 92 to 94% pulse ox with resolution of the dyspnea. Possible explanation for his hypoxia could be aspiration occurred during the seizure. I do note the white blood cell count of 22 although this is very likely a result of the seizure. I discussed the case with Dr. Payan (hospitalist for [facility]), and she will admit patient to [facility] for observation and can consider discharge once he no longer has an oxygen requirement. Departure - Departure Disposition: ED Place in Observation Clinical Impression: Grand mal seizure, Hypoxia Condition: Stable
--- OUTSIDE RECORDS SUMMARY | 2022-07-26 05:05 | EXTERNAL MEDICAL SUMMARY RPT | Continuity of Care Document ---
:1965 Author Organization [facility] Address [address] [place] [address] Phone Care Team Providers Name Role Phone LashondaGudelia Anderson Unavailable Unavailable Allergies and Intolerances date description facility type (no date) No Known Drug Allergies [facility] ([facility] own) Encounters No information. Functional Status No information. Immunizations No information. Medications date description facility 2022-05-31 00:00 Ondansetron [facility] Problems date description facility 2022-05-31 00:00 Abdominal pain [facility] Procedures date description facility 2022-05-31 00:00 X-ray of chest, single view [facility] 2022-05-31 00:00 CT abdomen pelvis w con [facility] 2022-05-31 00:00 US Abdomen limited [facility] Results/Labs test date author facility value unit interpret ation Result panel 1 (unknown) (no date[facility] Result panel 2 (unknown) (no date) (unknown[facility] Result panel 3 (unknown) (no date) (unknown[facility]) Result panel 4 (unknown) (no date) (unknown[facility]) Result panel 5 (unknown) (no date) (unknown[facility]) Result panel 6 (unknown) (no date) (unknown[facility]) Result panel 7 (unknown) (no date) (unknown[facility]) Result panel 8 (unknown) (no date) (unknown[facility]) Result panel 9 (unknown) (no date) (unknown[facility]) Result panel 10 (unknown) (no date) (unknown[facility]) Result panel 11 (unknown) (no date) (unknown[facility]) Result panel 12 (unknown) (no date) (unknown[facility]) Result panel 13 (unknown) (no date) (unknown[facility]) Result panel 14 (unknown) (no date) (unknown[facility]) Result panel 15 (unknown) (no date) (unknown[facility]) Result panel 16 (unknown) (no date) (unknown[facility]) Result panel 17 (unknown) (no date) (unknown[facility]) Result panel 18 (unknown) (no date) (unknown[facility]) Result panel 19 (unknown) (no date) (unknown[facility]) Result panel 20 (unknown) (no date) (unknown[facility]) Result panel 21 (unknown) (no date) (unknown[facility]) Result panel 22 (unknown) (no date) (unknown[facility]) Result panel 23 (unknown) (no date) (unknown[facility]) Result panel 24 (unknown) (no date) (unknown[facility]) Result panel 25 (unknown) (no date) (unknown[facility]) Result panel 26 (unknown) (no date) (unknown[facility]) Result panel 27 (unknown) (no date) (unknown[facility]) Result panel 28 (unknown) (no date) (unknown[facility]) Result panel 29 (unknown) (no date) (unknown[facility]) Result panel 30 (unknown) (no date) (unknown[facility]) Result panel 31 (unknown) (no date) (unknown[facility]) Result panel 32 (unknown) (no date) (unknown[facility]) Result panel 33 (unknown) (no date) (unknown[facility]) Result panel 34 (unknown) (no date) (unknown[facility]) Result panel 35 (unknown) (no date) (unknown[facility]) Result panel 36 (unknown) (no date) (unknown[facility]) Result panel 37 (unknown) (no (unknown) (unknown) (no value) (units (unk nown) date) unknown) (unknown) (no (unknown) (unknown) [id number] (units (unkno wn) date) unknown) (unknown) (no (unknown) (unknown) 05/31/22 (units (unkno wn) date) unknown) (unknown) (no (unknown) (unknown) [address] (units (unkn own) date) Street unknown) (unknown) (no (unknown) (unknown) Accession (units (unkn own) date) Number: unknown) [id number] (unknown) (no (unknown) (unknown) Age/Sex: 56 / M (units (unknown) date) Date of Service: unknown) (unknown) (no (unknown) (unknown) GLENNY Quinn (units ( unknown) date) [id number] unknown) (unknown) (no (unknown) (unknown) Approved by: (units (u nknown) date) Karmen Link, unknown) Nicholas on 05/31/2022 at 15:18 (unknown) (no (unknown) (unknown) Bones and chest (units (unknown) date) wall: No unknown) suspicious bony lesions. Overlying soft tissues (unknown) (no (unknown) (unknown) COMPARISON: (units (un known) date) None. unknown) (unknown) (no (unknown) (unknown) : 1965 (units (unknown) date) Acct:[id number] unknown) (unknown) (no (unknown) (unknown) Dictated by: (units (u nknown) date) Karmen Link, unknown) Nicholas on 05/31/2022 at 15:12 (unknown) (no (unknown) (unknown) FINDINGS: (units (unkn own) date) unknown) (unknown) (no (unknown) (unknown) IMPRESSION: No (units (unknown) date) acute pulmonary unknown) process. (unknown) (no (unknown) (unknown) INDICATIONS: (units (u nknown) date) chest pain unknown) (unknown) (no (unknown) (unknown) [facility] (units (unknown) date) unknown) (unknown) (no (unknown) (unknown) Loc: ED (units (unkno wn) date) unknown) (unknown) (no (unknown) (unknown) Lungs and (units (unkn own) date) pleura: Trace unknown) left costophrenic angle blunting, unchanged possibly (unknown) (no (unknown) (unknown) Mediastinum: (units (u nknown) date) Mediastinal unknown) contours appear normal. Heart size is normal. (unknown) (no (unknown) (unknown) Ordering (units (unkno wn) date) Provider: unknown) Aldo Michel MD (unknown) (no (unknown) (unknown) PROCEDURE: XR (units ( unknown) date) CHEST 1V unknown) (unknown) (no (unknown) (unknown) Patient: (units (unkno wn) date) Aiden Mathur unknown) MR#: [id number] (unknown) (no (unknown) (unknown) Procedure: XR (units ( unknown) date) chest 1V unknown) (unknown) (no (unknown) (unknown) Signed (units (unkno wn) date) unknown) (unknown) (no (unknown) (unknown) Surgical (units (unkno wn) date) changes and unknown) devices: None. (unknown) (no (unknown) (unknown) TECHNIQUE: One (units (unknown) date) view of the unknown) chest was acquired. (unknown) (no (unknown) (unknown) XRay Report (units (un known) date) unknown) (unknown) (no (unknown) (unknown) appear (units (unkno wn) date) unknown) (unknown) (no (unknown) (unknown) representing (units (u nknown) date) scarring versus unknown) trace effusion (unknown) (no (unknown) (unknown) unremarkable. (units ( unknown) date) unknown) Result panel 38 (unknown) (no date) (unknown) (unknown) 0.6 % (unkn own) (unknown) (no date) (unknown) (unknown) 1.1 % (unkn own) (unknown) (no date) (unknown) (unknown) 100 /ul (unkn own) (unknown) (no date) (unknown) (unknown) 18377 /ul (unkn own) (unknown) (no date) (unknown) (unknown) 13.4 % (unkn own) (unknown) (no date) (unknown) (unknown) 14.1 % (unkn own) (unknown) (no date) (unknown) (unknown) 15.0 g/dl (unkn own) (unknown) (no date) (unknown) (unknown) 15.2 x10 3/ul (unkn own) (unknown) (no date) (unknown) (unknown) 17.5 % (unkn own) (unknown) (no date) (unknown) (unknown) 200 /ul (unkn own) (unknown) (no date) (unknown) (unknown) 2000 /ul (unkn own) (unknown) (no date) (unknown) (unknown) 2700 /ul (unkn own) (unknown) (no date) (unknown) (unknown) 30.4 pg (unkn own) (unknown) (no date) (unknown) (unknown) 311 x10 3/ul (unkn own) (unknown) (no date) (unknown) (unknown) 33.9 % (unkn own) (unknown) (no date) (unknown) (unknown) 4.93 x10 6/ul (unkn own) (unknown) (no date) (unknown) (unknown) 44.2 % (unkn own) (unknown) (no date) (unknown) (unknown) 67.4 % (unkn own) (unknown) (no date) (unknown) (unknown) 89.6 fl (unkn own) Result panel 39 (unknown) (no date) (unknown) (unknown) 1.5 (units unknown) (unknown) (unknown) (no date) (unknown) (unknown) 16.9 seconds (unkn own) (unknown) (no date) (unknown) (unknown) 39 seconds (unkn own) (unknown) (no date) (unknown) (unknown) 39 seconds (unkn own) Result panel 40 (unknown) (no date) (unknown) (unknown) > 60 ml/min (unkn own) (unknown) (no date) (unknown) (unknown) > 60 ml/min (unkn own) (unknown) (no date) (unknown) (unknown) 0.66 mg/dl (unkn own) (unknown) (no date) (unknown) (unknown) 1.0 mg/dl (unkn own) (unknown) (no date) (unknown) (unknown) 1.2 (units (unkn own) unknown) (unknown) (no date) (unknown) (unknown) 1.9 mg/dl (unkn own) (unknown) (no date) (unknown) (unknown) 10 mg/dl (unkn own) (unknown) (no date) (unknown) (unknown) 102 mmol/l (unkn own) (unknown) (no date) (unknown) (unknown) 124 mg/dl (unkn own) (unknown) (no date) (unknown) (unknown) 124 mg/dl (unkn own) (unknown) (no date) (unknown) (unknown) 138 mmol/l (unkn own) (unknown) (no date) (unknown) (unknown) 15.2 (units (unkn own) unknown) (unknown) (no date) (unknown) (unknown) 23 mmol/l (unkn own) (unknown) (no date) (unknown) (unknown) 23 u/l (unkn own) (unknown) (no date) (unknown) (unknown) 24 iu/l (unkn own) (unknown) (no date) (unknown) (unknown) 3.5 mmol/l (unkn own) (unknown) (no date) (unknown) (unknown) 3.8 g/dl (unkn own) (unknown) (no date) (unknown) (unknown) 30 iu/l (unkn own) (unknown) (no date) (unknown) (unknown) 4.5 g/dl (unkn own) (unknown) (no date) (unknown) (unknown) 8.3 g/dl (unkn own) (unknown) (no date) (unknown) (unknown) 8.5 mg/dl (unkn own) (unknown) (no date) (unknown) (unknown) 86 u/l (unkn own) (unknown) (no date) (unknown) (unknown) 97 u/l (unkn own) (unknown) (no date) (unknown) (unknown) Test not % (unkn own) performed (unknown) (no date) (unknown) (unknown) Test not % (unkn own) performed (unknown) (no date) (unknown) (unknown) Test not ng/ml (unkn own) performed (unknown) (no date) (unknown) (unknown) Test not ng/ml (unkn own) performed Result panel 41 (unknown) (no date) (unknown) (unknown) > 60 ml/min (unkn own) (unknown) (no date) (unknown) (unknown) > 60 ml/min (unkn own) (unknown) (no date) (unknown) (unknown) < 0.012 ng/ml (unkn own) (unknown) (no date) (unknown) (unknown) < 0.012 ng/ml (unkn own) (unknown) (no date) (unknown) (unknown) 0.66 mg/dl (unkn own) (unknown) (no date) (unknown) (unknown) 1.0 mg/dl (unkn own) (unknown) (no date) (unknown) (unknown) 1.2 (units (unkn own) unknown) (unknown) (no date) (unknown) (unknown) 1.9 mg/dl (unkn own) (unknown) (no date) (unknown) (unknown) 10 mg/dl (unkn own) (unknown) (no date) (unknown) (unknown) 102 mmol/l (unkn own) (unknown) (no date) (unknown) (unknown) 124 mg/dl (unkn own) (unknown) (no date) (unknown) (unknown) 124 mg/dl (unkn own) (unknown) (no date) (unknown) (unknown) 138 mmol/l (unkn own) (unknown) (no date) (unknown) (unknown) 15.2 (units (unkn own) unknown) (unknown) (no date) (unknown) (unknown) 23 mmol/l (unkn own) (unknown) (no date) (unknown) (unknown) 23 u/l (unkn own) (unknown) (no date) (unknown) (unknown) 24 iu/l (unkn own) (unknown) (no date) (unknown) (unknown) 3.5 mmol/l (unkn own) (unknown) (no date) (unknown) (unknown) 3.8 g/dl (unkn own) (unknown) (no date) (unknown) (unknown) 30 iu/l (unkn own) (unknown) (no date) (unknown) (unknown) 4.5 g/dl (unkn own) (unknown) (no date) (unknown) (unknown) 8.3 g/dl (unkn own) (unknown) (no date) (unknown) (unknown) 8.5 mg/dl (unkn own) (unknown) (no date) (unknown) (unknown) 86 u/l (unkn own) (unknown) (no date) (unknown) (unknown) 97 u/l (unkn own) (unknown) (no date) (unknown) (unknown) Test not % (unkn own) performed (unknown) (no date) (unknown) (unknown) Test not % (unkn own) performed (unknown) (no date) (unknown) (unknown) Test not ng/ml (unkn own) performed (unknown) (no date) (unknown) (unknown) Test not ng/ml (unkn own) performed Result panel 42 (unknown) (no (unknown) (unknown) (no value) (units (unk nown) date) unknown) (unknown) (no (unknown) (unknown) 05/31/22 (units (unkno wn) date) 05/31/22 05/31/22 unknown) Range/Units (unknown) (no (unknown) (unknown) 05/31/22 13:52 (units (unknown) date) unknown) (unknown) (no (unknown) (unknown) 05/31/22 14:00 (units (unknown) date) unknown) (unknown) (no (unknown) (unknown) 05/31/22 (units (unkno wn) date) unknown) (unknown) (no (unknown) (unknown) 13:53 05/31/22 (units (unknown) date) unknown) (unknown) (no (unknown) (unknown) 14:00 14:00 (units (un known) date) 14:00 unknown) (unknown) (no (unknown) (unknown) 17:00 (units (unkno wn) date) unknown) (unknown) (no (unknown) (unknown) [id number] (units (unkno wn) date) unknown) (unknown) (no (unknown) (unknown) ALT 30 (<50) (units (u nknown) date) IU/L unknown) (unknown) (no (unknown) (unknown) APTT 39 H (units (unkn own) date) (26-36) SECONDS unknown) (unknown) (no (unknown) (unknown) AST 24 (17-59) (units (unknown) date) IU/L unknown) (unknown) (no (unknown) (unknown) Age/Sex: 56 / M (units (unknown) date) unknown) (unknown) (no (unknown) (unknown) Albumin 4.5 (units (un known) date) (3.5-5.0) g/dL unknown) (unknown) (no (unknown) (unknown) Albumin/Globulin (units (unknown) date) Ratio 1.2 unknown) (1.0-2.8) (unknown) (no (unknown) (unknown) Alkaline (units (unkno wn) date) Phosphatase 86 unknown) (38-126) U/L (unknown) (no (unknown) (unknown) Allergies (units (unkn own) date) unknown) (unknown) (no (unknown) (unknown) Allergy/AdvReac (units (unknown) date) Type Severity unknown) Reaction Status Date / Time (unknown) (no (unknown) (unknown) BUN 10 (9-20) (units ( unknown) date) mg/dL unknown) (unknown) (no (unknown) (unknown) BUN/Creatinine (units (unknown) date) Ratio 15.2 (6-22) unknown) (unknown) (no (unknown) (unknown) Baso # (Auto) (units ( unknown) date) 100 (0-100) /uL unknown) (unknown) (no (unknown) (unknown) Baso % (Auto) (units ( unknown) date) 0.6 (0-2) % unknown) (unknown) (no (unknown) (unknown) Blood Pressure (units (unknown) date) 145/96 H 05/31/22 unknown) 13:53 (unknown) (no (unknown) (unknown) Blood Pressure (units (unknown) date) 145/96 H 142/102 unknown) H (unknown) (no (unknown) (unknown) CK-MB (CK-2) Rel (units (unknown) date) Index TNP unknown) (unknown) (no (unknown) (unknown) CK-MB (CK-2) TNP (units (unknown) date) unknown) (unknown) (no (unknown) (unknown) Calcium 8.5 (units (un known) date) (8.4-10.2) mg/dL unknown) (unknown) (no (unknown) (unknown) Carbon Dioxide (units (unknown) date) 23 (22-32) mmol/L unknown) (unknown) (no (unknown) (unknown) Chief Complaint: (units (unknown) date) Chest Pain unknown) (unknown) (no (unknown) (unknown) Chloride 102 (units (u nknown) date) (98-107) mmol/L unknown) (unknown) (no (unknown) (unknown) Complete Blood (units (unknown) date) Count AUTO DIFF unknown) Stat (unknown) (no (unknown) (unknown) Comprehensive (units ( unknown) date) Metabolic Panel unknown) Stat (unknown) (no (unknown) (unknown) Course (units (unkno wn) date) unknown) (unknown) (no (unknown) (unknown) Creatinine 0.66 (units (unknown) date) (0.66-1.25) mg/dL unknown) (unknown) (no (unknown) (unknown) DGudelia Anderson, (units (unknown) date) PA-C [Primary unknown) Care Provider] (unknown) (no (unknown) (unknown) : 1965 (units (unknown) date) Acct:[id number] unknown) (unknown) (no (unknown) (unknown) Date of Service: (units (unknown) date) 05/31/22 unknown) (unknown) (no (unknown) (unknown) Departure (units (unkn own) date) unknown) (unknown) (no (unknown) (unknown) Discharge Plan (units (unknown) date) unknown) (unknown) (no (unknown) (unknown) ED Orders (units (unkn own) date) unknown) (unknown) (no (unknown) (unknown) EKG-12 Lead Stat (units (unknown) date) unknown) (unknown) (no (unknown) (unknown) ER Physician: (units ( unknown) date) Mirian Olvera unknown) (unknown) (no (unknown) (unknown) Emergency Report (units (unknown) date) unknown) (unknown) (no (unknown) (unknown) Eos # (Auto) 200 (units (unknown) date) (0-450) /uL unknown) (unknown) (no (unknown) (unknown) Eos % (Auto) 1.1 (units (unknown) date) L (2-4) % unknown) (unknown) (no (unknown) (unknown) Estimated GFR > (units (unknown) date) 60 (>60) mL/min unknown) (unknown) (no (unknown) (unknown) Exam (units (unkno wn) date) unknown) (unknown) (no (unknown) (unknown) General (units (unkno wn) date) unknown) (unknown) (no (unknown) (unknown) Globulin 3.8 (units (u nknown) date) (1.7-4.1) g/dL unknown) (unknown) (no (unknown) (unknown) Glucose 124 H (units ( unknown) date) (70-100) mg/dL unknown) (unknown) (no (unknown) (unknown) HPI - Chest Pain (units (unknown) date) unknown) (unknown) (no (unknown) (unknown) Hct 44.2 (41-53) (units (unknown) date) % unknown) (unknown) (no (unknown) (unknown) Hgb 15.0 (units (unkno wn) date) (13.5-17.5) g/dL unknown) (unknown) (no (unknown) (unknown) INR 1.5 H (units (unkn own) date) (0.9-1.3) unknown) (unknown) (no (unknown) (unknown) Initial Vital (units ( unknown) date) Signs unknown) (unknown) (no (unknown) (unknown) Initial Vital (units ( unknown) date) Signs: unknown) (unknown) (no (unknown) (unknown) [facility] (units (unknown) date) [address] [place] [address] unknown) [place] [address] (unknown) (no (unknown) (unknown) Lab Data (units (unkno wn) date) unknown) (unknown) (no (unknown) (unknown) Lab Results (units (un known) date) unknown) (unknown) (no (unknown) (unknown) Labs: (units (unkno wn) date) unknown) (unknown) (no (unknown) (unknown) Limitations: no (units (unknown) date) limitations unknown) (unknown) (no (unknown) (unknown) Lipase 23 (units (unkn own) date) (23-300) U/L unknown) (unknown) (no (unknown) (unknown) Lipase Stat (units (un known) date) unknown) (unknown) (no (unknown) (unknown) Lymph # (Auto) (units (unknown) date) 2700 (4586-1510) unknown) /uL (unknown) (no (unknown) (unknown) Lymph % (Auto) (units (unknown) date) 17.5 L (25-40) % unknown) (unknown) (no (unknown) (unknown) MCH 30.4 (26-34) (units (unknown) date) PG unknown) (unknown) (no (unknown) (unknown) MCHC 33.9 (units (unkn own) date) (30-36) % unknown) (unknown) (no (unknown) (unknown) MCV 89.6 (units (unkno wn) date) (80-100) fL unknown) (unknown) (no (unknown) (unknown) MDM - Chest Pain (units (unknown) date) unknown) (unknown) (no (unknown) (unknown) Magnesium 1.9 (units ( unknown) date) (1.6-2.3) mg/dL unknown) (unknown) (no (unknown) (unknown) Magnesium Stat (units (unknown) date) unknown) (unknown) (no (unknown) (unknown) Mode of arrival: (units (unknown) date) Ambulatory unknown) (unknown) (no (unknown) (unknown) Lassen # (Auto) (units ( unknown) date) 2000 H (0-900) unknown) /uL (unknown) (no (unknown) (unknown) Lassen % (Auto) (units ( unknown) date) 13.4 (3-14) % unknown) (unknown) (no (unknown) (unknown) Neut # (Auto) (units ( unknown) date) 77148 H unknown) (7538-1305) /uL (unknown) (no (unknown) (unknown) Neut % (Auto) (units ( unknown) date) 67.4 (50-75) % unknown) (unknown) (no (unknown) (unknown) No Known Drug (units ( unknown) date) Allergies Allergy unknown) Verified 05/31/22 13:53 (unknown) (no (unknown) (unknown) Ordered: (units (unkno wn) date) unknown) (unknown) (no (unknown) (unknown) Orders (units (unkno wn) date) unknown) (unknown) (no (unknown) (unknown) Oxygen Delivery (units (unknown) date) Method 05/31/22 unknown) 13:53 (unknown) (no (unknown) (unknown) Oxygen Delivery (units (unknown) date) Method Room Air unknown) Room Air (unknown) (no (unknown) (unknown) PT 16.9 H (units (unkn own) date) (10.1-12.7) unknown) SECONDS (unknown) (no (unknown) (unknown) Partial (units (unkno wn) date) Thromboplastin unknown) Time Stat (unknown) (no (unknown) (unknown) Patient History (units (unknown) date) unknown) (unknown) (no (unknown) (unknown) Patient: (units (unkno wn) date) Aiden Mathur unknown) MR#: [id number] (unknown) (no (unknown) (unknown) Plt Count 311 (units ( unknown) date) (150-400) X103/uL unknown) (unknown) (no (unknown) (unknown) Potassium 3.5 (units ( unknown) date) (3.4-5.1) mmol/L unknown) (unknown) (no (unknown) (unknown) Prothrombin Time (units (unknown) date) INR Stat unknown) (unknown) (no (unknown) (unknown) Pulse Oximetry (units (unknown) date) 97 100 unknown) (unknown) (no (unknown) (unknown) Pulse Oximetry (units (unknown) date) 97 05/31/22 13:53 unknown) (unknown) (no (unknown) (unknown) Pulse Rate 97 H (units (unknown) date) 05/31/22 13:53 unknown) (unknown) (no (unknown) (unknown) Pulse Rate 97 H (units (unknown) date) 96 H unknown) (unknown) (no (unknown) (unknown) RBC 4.93 (units (unkno wn) date) (4.5-5.9) X106/uL unknown) (unknown) (no (unknown) (unknown) RDW 14.1 (units (unkno wn) date) (11.6-14.8) % unknown) (unknown) (no (unknown) (unknown) Referrals: (units (unk nown) date) unknown) (unknown) (no (unknown) (unknown) Related Data (units (u nknown) date) unknown) (unknown) (no (unknown) (unknown) Respiratory Rate (units (unknown) date) 18 05/31/22 13:53 unknown) (unknown) (no (unknown) (unknown) Respiratory Rate (units (unknown) date) 18 unknown) (unknown) (no (unknown) (unknown) Result diagrams: (units (unknown) date) unknown) (unknown) (no (unknown) (unknown) Signed By: (units (unk nown) date) unknown) (unknown) (no (unknown) (unknown) Smoking Status: (units (unknown) date) Unknown if ever unknown) smoked (unknown) (no (unknown) (unknown) Social History (units (unknown) date) unknown) (unknown) (no (unknown) (unknown) Sodium 138 (units (unk nown) date) (137-145) mmol/L unknown) (unknown) (no (unknown) (unknown) Source: patient (units (unknown) date) unknown) (unknown) (no (unknown) (unknown) Stated (units (unkno wn) date) Complaint: Chest unknown) tightness, SOB (unknown) (no (unknown) (unknown) Substance Use (units ( unknown) date) Type: marijuana unknown) (unknown) (no (unknown) (unknown) Temperature 99.3 (units (unknown) date) F 05/31/22 13:53 unknown) (unknown) (no (unknown) (unknown) Temperature 99.3 (units (unknown) date) F unknown) (unknown) (no (unknown) (unknown) Time Seen by (units (u nknown) date) Provider: unknown) 05/31/22 19:02 (unknown) (no (unknown) (unknown) Total Bilirubin (units (unknown) date) 1.0 (0.2-1.3) unknown) mg/dL (unknown) (no (unknown) (unknown) Total Creatine (units (unknown) date) Kinase 97 unknown) (55-170) U/L (unknown) (no (unknown) (unknown) Total Protein (units ( unknown) date) 8.3 H (6.3-8.2) unknown) g/dL (unknown) (no (unknown) (unknown) Troponin + CK (units ( unknown) date) Cardiac Panel unknown) Stat (unknown) (no (unknown) (unknown) Troponin I < (units (u nknown) date) 0.012 unknown) (0.01-0.034) ng/mL (unknown) (no (unknown) (unknown) Vital Signs - 8 (units (unknown) date) hr unknown) (unknown) (no (unknown) (unknown) Vital Signs (units (un known) date) unknown) (unknown) (no (unknown) (unknown) Vital signs: (units (u nknown) date) unknown) (unknown) (no (unknown) (unknown) WBC 15.2 H (units (unk nown) date) (4.5-11.0) unknown) X103/uL (unknown) (no (unknown) (unknown) XR chest 1V Stat (units (unknown) date) unknown) (unknown) (no (unknown) (unknown) [Embedded Image (units (unknown) date) Not Available] unknown) (unknown) (no (unknown) (unknown) alcohol intake (units (unknown) date) frequency: unknown) holidays/special occasions only Result panel 43 (unknown) (no (unknown) (unknown) (no value) (units (unk nown) date) unknown) (unknown) (no (unknown) (unknown) [id number] (units (unkno wn) date) unknown) (unknown) (no (unknown) (unknown) 1. Borderline (units ( unknown) date) hepatomegaly and unknown) hepatic steatosis, no discrete hepatic lesion. (unknown) (no (unknown) (unknown) 05/31/22 (units (unkno wn) date) unknown) (unknown) (no (unknown) (unknown) [address] [place] [address] (units (unknown) date) unknown) (unknown) (no (unknown) (unknown) 2. Normal (units (unkn own) date) appearing unknown) gallbladder. No biliary ductal dilatation. (unknown) (no (unknown) (unknown) Accession Number: (units (unknown) date) [id number] unknown) (unknown) (no (unknown) (unknown) Age/Sex: 56 / M (units (unknown) date) Date of Service: unknown) (unknown) (no (unknown) (unknown) [place], [place] (units ( unknown) date) [id number] unknown) (unknown) (no (unknown) (unknown) Approved by: Nicho (units (unknown) date) Nicholas Ortiz on unknown) 05/31/2022 at 20:11 (unknown) (no (unknown) (unknown) Biliary ducts: (units (unknown) date) Intrahepatic bile unknown) ducts are non-dilated. Extrahepatic bile (unknown) (no (unknown) (unknown) COMPARISON: None. (units (unknown) date) unknown) (unknown) (no (unknown) (unknown) : 1965 (units (unknown) date) Acct:[id number] unknown) (unknown) (no (unknown) (unknown) Dictated by: Nicho (units (unknown) date) Nicholas Ortiz on unknown) 05/31/2022 at 20:11 (unknown) (no (unknown) (unknown) FINDINGS: (units (unkn own) date) unknown) (unknown) (no (unknown) (unknown) Gallbladder: (units (u nknown) date) There is no unknown) gallstone. No gallbladder wall thickening or (unknown) (no (unknown) (unknown) IMPRESSION: (units (un known) date) unknown) (unknown) (no (unknown) (unknown) INDICATIONS: RUQ (units (unknown) date) PAIN unknown) (unknown) (no (unknown) (unknown) [facility] (units (unknown) date) unknown) (unknown) (no (unknown) (unknown) Liver: Liver is (units (unknown) date) mildly enlarged unknown) and measures 18.3 cm in length. Increased (unknown) (no (unknown)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 date) unknown) (unknown) (no (unknown) (unknown) and imaging (units (un known) date) studies with you unknown) to share with your primary care doctor next week. (unknown) (no (unknown) (unknown) and is (units (unkno wn) date) unknown) (unknown) (no (unknown) (unknown) associated with (units (unknown) date) some nausea but no unknown) actual vomiting. It is not associated with (unknown) (no (unknown) (unknown) bases.? ? (units (unkn own) date) unknown) (unknown) (no (unknown) (unknown) better this is (units (unknown) date) not an acute unknown) finding. Does have a follow-up appointment with a (unknown) (no (unknown) (unknown) but an (units (unkno wn) date) infiltrative unknown) process cannot be excluded.? A small peripheral (unknown) (no (unknown) (unknown) caliber (units (unkno wn) date) unknown) (unknown) (no (unknown) (unknown) chills, (units (unkno wn) date) palpitations. He unknown) is had no change to bowel movements. (unknown) (no (unknown) (unknown) coherent history. (units (unknown) date) Well-nourished unknown) well-developed (unknown) (no (unknown) (unknown) complaining of a (units (unknown) date) number of weeks of unknown) intermittent episodes of chest pain. (unknown) (no (unknown) (unknown) continued pain a (units (unknown) date) CT scan of the unknown) abdomen was ordered which shows some mild (unknown) (no (unknown) (unknown) demonstrated (units (u nknown) date) unknown) (unknown) (no (unknown) (unknown) discussion with (units (unknown) date) the patient he is unknown) aware of this fracture pain is actually doing (unknown) (no (unknown) (unknown) eating, fasting, (units (unknown) date) exercise, unknown) position, breast. He is not noticed fevers, cough, (unknown) (no (unknown) (unknown) evaluation with a (units (unknown) date) liver protocol MRI unknown) if clinically indicated. (unknown) (no (unknown) (unknown) experiencing your (units (unknown) date) discomfort and unknown) most likely is related to some type of viral (unknown) (no (unknown) (unknown) fluid.? No (units (unk nown) date) sonographic [place] unknown) sign. (unknown) (no (unknown) (unknown) focal transition (units (unknown) date) point.? The unknown) findings likely reflect a gastroenteritis. (unknown) (no (unknown) (unknown) fracture margins.? (units (unknown) date) The findings may unknown) represent an acute re-injury of a previously (unknown) (no (unknown) (unknown) fracture or (units (un known) date) nonunion of a unknown) chronic fracture.? Old healed fractures are also (unknown) (no (unknown) (unknown) free to return to (units (unknown) date) the emergency unknown) department for further evaluation. (unknown) (no (unknown) (unknown) further (units (unkno wn) date) unknown) (unknown) (no (unknown) (unknown) gastroenteritis. (units (unknown) date) unknown) (unknown) (no (unknown) (unknown) healed (units (unkno wn) date) unknown) (unknown) (no (unknown) (unknown) hepatic (units (unkno wn) date) unknown) (unknown) (no (unknown) (unknown) hypoattenuating (units (unknown) date) unknown) (unknown) (no (unknown) (unknown) ill-defined (units (un known) date) hypoattenuating unknown) infiltrative process primarily involving the right (unknown) (no (unknown) (unknown) in the left (units (un known) date) superior and unknown) inferior pubic rami.? (unknown) (no (unknown) (unknown) include copies of (units (unknown) date) labs and CT scans unknown) with his discharge instructions to share (unknown) (no (unknown) (unknown) incompletely (units (u nknown) date) characterized on unknown) the current study. (unknown) (no (unknown) (unknown) inferiorly. (units (un known) date) unknown) (unknown) (no (unknown) (unknown) infiltration (units (u nknown) date) unknown) (unknown) (no (unknown) (unknown) irregularity (units (u nknown) date) along the fracture unknown) margins.? There also healed fractures of the (unknown) (no (unknown) (unknown) left (units (unkno wn) date) unknown) (unknown) (no (unknown) (unknown) lesion in (units (unkn own) date) unknown) (unknown) (no (unknown) (unknown) lesion is also (units (unknown) date) demonstrated unknown) laterally in the right hepatic lobe.? Consider (unknown) (no (unknown) (unknown) liver (units (unkno wn) date) unknown) (unknown) (no (unknown) (unknown) lobe as well as (units (unknown) date) the lateral left unknown) hepatic lobe.? A hypoattenuating peripheral (unknown) (no (unknown) (unknown) measures 4.6 mm.? (units (unknown) date) Normal is 6-7 mm unknown) or less in diameter, or 10 mm or less (unknown) (no (unknown) (unknown) mention of a (units (u nknown) date) mildly displaced unknown) fracture of the left superior acetabulum. In (unknown) (no (unknown) (unknown) more in his upper (units (unknown) date) abdomen and unknown) abdominal ultrasound shows no acute cholecystitis (unknown) (no (unknown) (unknown) myocarditis, (units (u nknown) date) pericarditis, unknown) pneumonia or pneumothorax. Attention was focused (unknown) (no (unknown) (unknown) neurologist at (units (unknown) date) the end of the unknown) week and his primary care doctor next week. Will (unknown) (no (unknown) (unknown) obstruction.? The (units (unknown) date) findings likely unknown) reflect a gastroenteritis. (unknown) (no (unknown) (unknown) ondansetron 4 mg (units (unknown) date) disintegrating 4 unknown) mg PO Q8H PRN nausea and 05/31/22 (unknown) (no (unknown) (unknown) ondansetron 4 mg (units (unknown) date) tablet,disintegrat unknown) ing (unknown) (no (unknown) (unknown) or (units (unkno wn) date) cholelithiasis, unknown) slightly enlarged liver with no obvious masses. With the (unknown) (no (unknown) (unknown) pain (units (unkno wn) date) unknown) (unknown) (no (unknown) (unknown) parenchymal (units (un known) date) echotexture is unknown) seen, no discrete hepatic lesion. (unknown) (no (unknown) (unknown) pericholecystic (units (unknown) date) unknown) (unknown) (no (unknown) (unknown) pneumonia or lung (units (unknown) date) problems. You do unknown) not have gallstones and do not have any (unknown) (no (unknown) (unknown) post-cholecystect (units (unknown) date) mika.? unknown) (unknown) (no (unknown) (unknown) proximal (units (unkno wn) date) unknown) (unknown) (no (unknown) (unknown) right chest (units (un known) date) across the unknown) precordium causing severe pain described as an 8/10 (unknown) (no (unknown) (unknown) segment 7 of the (units (unknown) date) right hepatic lobe unknown) measures up to 1.8 cm on series 2, image 23 (unknown) (no (unknown) (unknown) small bowel loops (units (unknown) date) which fits unknown) clinically with a gastroenteritis. There is a (unknown) (no (unknown) (unknown) small bowel loops (units (unknown) date) with associated unknown) air-fluid levels.? No focal transition point (unknown) (no (unknown) (unknown) stomach and some (units (unknown) date) of the small unknown) bowel. This is the area where you are (unknown) (no (unknown) (unknown) subsequent (units (unk nown) date) pulmonary emboli unknown) for which he is on chronic Eliquis presents (unknown) (no (unknown) (unknown) superior and (units (u nknown) date) inferior pubic unknown) rami.? Visualized osseous structures demonstrate no (unknown) (no (unknown) (unknown) surgical findings (units (unknown) date) in your belly. You unknown) do have fullness and distention in your (unknown) (no (unknown) (unknown) suspicious focal (units (unknown) date) lesions. unknown) (unknown) (no (unknown) (unknown) tablet vomiting (units (unknown) date) #14 tabs unknown) (unknown) (no (unknown) (unknown) that included in (units (unknown) date) the HPI. unknown) (unknown) (no (unknown) (unknown) the right upper (units (unknown) date) quadrant without unknown) rebound or guarding, good bowel tones, no flank (unknown) (no (unknown) (unknown) to suggest (units (unk nown) date) unknown) (unknown) (no (unknown) (unknown) well-healed (units (un known) date) posterior cervical unknown) surgical scars (unknown) (no (unknown) (unknown) with his other (units (unknown) date) providers. At this unknown) point he is safe for discharge (unknown) (no (unknown) (unknown) without a (units (unkn own) date) unknown) Social History date description facility 2022-05-31 00:00 Tobacco smoking consumption unknown ([facility] Vital Signs date measurement value units 2022-05-31 00:00 BMI 34.0 kg/m2 2022-05-31 00:00 height_metric 193.04 cm 2022-05-31 00:00 height_standard 76 in 2022-05-31 00:00 temperature_metric 37.39 C 2022-05-31 00:00 temperature_standard 99.3 F 2022-05-31 00:00 weight_metric 127 kg 2022-05-31 00:00 weight_standard 279.99 lb 2022-06-01 00:00 BP_diastolic 79 mmHg 2022-06-01 00:00 BP_systolic 138 mmHg 2022-06-01 00:00 heart_rate 75 /min 2022-06-01 00:00 o2_saturation 98 % 2022-06-01 00:00 respiration_rate 16 /min
[2022-07-26 05:10] LABS: BASOPHILS % (AUTO) 0.5 %; HCT - HEMATOCRIT 46.5 % (42.0-52.0); HGB - HEMOGLOBIN 15.4 g/dL (14.0-18.0); LYMPHOCYTES % (AUTO) 16.8 %; MEAN CORPUSCULAR HEMOGLOBIN 30.6 pg (27.0-31.0); MEAN CORPUSCULAR HGB CONC 33.1 g/dL (32.0-36.0); MEAN CORPUSCULAR VOLUME 92.4 fL (80.0-94.0); MEAN PLATELET VOLUME 10.2 fL (7.4-11.4); NEUTROPHILS % (AUTO) 70.9 %; PLT - PLATELET COUNT 352 10^3/uL (130-450); RED BLOOD COUNT 5.03 10^6/uL (4.70-6.10); RED CELL DISTRIBUTION WIDTH 14.8 % (12.0-15.0); WHITE BLOOD COUNT 22.2 x10^3/uL (4.8-10.8)
[2022-07-26 05:20] LABS: ABNORMAL LYMPHS % (MANUAL) 0 %
[2022-07-26 05:24] LABS: ALBUMIN 3.8 g/dL (3.2-5.5); ALBUMIN/GLOBULIN RATIO 1.1 (1.0-2.2); ALKALINE PHOSPHATASE 98 IU/L (42-121); ALT ALANINE AMINOTRANSFERASE 38 IU/L (10-60); AST ASPARTATE AMINOTRANSFERASE 33 IU/L (10-42); BAND NEUTROPHILS % (MANUAL) 2 %; BILIRUBIN,TOTAL 0.6 mg/dL (0.2-1.0); BUN - BLOOD UREA NITROGEN 15 mg/dL (6-20); CALCIUM 8.5 mg/dL (8.5-10.3); CARBON DIOXIDE - CO2 22 mmol/L (21-32); CHLORIDE 106 mmol/L (101-111); EOSINOPHILS # (MANUAL) 0.9 10^3/uL (0-0.7); ETOH - ETHANOL < 5.0 mg/dL; GFR - MDRD 77 (>89); GLUCOSE 147 mg/dL (70-100); LIPASE 33 U/L (22-51); LYMPHOCYTES # (MANUAL) 2.9 10^3/uL (1.5-3.5); LYMPHOCYTES % (MANUAL) 13 %; MONOCYTES # (MANUAL) 2.2 10^3/uL (0.0-1.0); MYELOCYTES % (MANUAL) 1 %; POTASSIUM 3.3 mmol/L (3.5-5.0); RBC MORPHOLOGY (MULTIPLE) NORMAL APPEARANCE (NORMAL); SODIUM 140 mmol/L (135-145); TOTAL PROTEIN 7.3 g/dL (6.7-8.2)
[2022-07-26 05:25] LABS: DIFFERENTIAL COMMENT MANUAL DIFFERENTIAL; PLATELET ESTIMATE, MANUAL NORMAL (130-450,000) (NORMAL); PLATELET MORPHOLOGY NORMAL APPEARANCE (NORMAL); WBC MORPHOLOGY (MULTIPLE) NORMAL APPEARANCE (NORMAL)
[2022-07-26] MEDS ORDERED: MORPHINE 2 MG/ML CARPUJECT IVP STA ×2 (05:42→06:47)
[2022-07-26] MEDS ORDERED: MORPHINE 2 MG/ML CARPUJECT ONE (05:46)
[2022-07-26] MEDS ORDERED: iohexoL-300 100 ML VIAL ONE (06:31)
[2022-07-26] MEDS ORDERED: iohexoL-300 100 ML VIAL IVP ONE (07:29)
--- NOTE | 2022-07-26 08:02 | CT Report ---
PROCEDURE: HEAD WO INDICATIONS: new-onset seizure TECHNIQUE: Noncontrast 4.5 mm thick angled axial sections acquired from the foramen magnum to the vertex. For r adiation dose reduction, the following was used: automated exposure control, adjustment of mA and/or kV according to patient size. COMPARISON: None. FINDINGS: Image quality: Excellent. The ventricular system and cortical sulci demonstrate atrophy, consistent for patient's stated age. There are areas of hypodensity in the periventricular and subcortical white matter. There is no acut e intra or extra-axial fluid collection. No acute hemorrhage, mass lesion or midline shift. Old fro ntal infarction Brainstem is unremarkable. Globes are symmetrical. Sinuses are aerated. Osseous structures are intact. IMPRESSION: 1. No acute intracranial process. 2. Moderate atrophy and chronic microvascular ischemic changes. The above findings are concordant with preliminary report. Reviewed by: Karmen Link MD on 07/26/2022 8:00 AM [facility] Approved by: Karmen Link MD on 07/26/2022 8:00 AM [facility] Station ID: [id number]
--- NOTE | 2022-07-26 08:40 | CT Report ---
PROCEDURE: ANGIO CHEST W/WO INDICATIONS: hypoxia, abnormal CXR CONTRAST: 80ml Omnipaque 300 TECHNIQUE: After the administration of intravenous contrast, 2 mm axial images were acquired from the pulmonary apices to the posterior costophrenic angles during the arterial phase. In addition, 1 mm lung kernel and 5 mm soft tissue kernel reconstructions were performed. 3-dimensional coronal oblique maximum int ensity projection (MIP) reformats, 8 mm axial MIP, and 5 mm coronal and sagittal MPR reformats were t hen performed through the thorax. For radiation dose reduction, the following was used: automated exp osure control, adjustment of mA and/or kV according to patient size. COMPARISON: None FINDINGS: Image quality: Excellent. Pulmonary arteries: Pulmonary arteries are normal in size, and demonstrate no intraluminal filling d efects to suggest central pulmonary embolism. Lungs and pleura: Mild dependent bibasilar atelectasis versus pneumonia. No pleural effusions or pneu mothorax. Central and peripheral airways are patent. Mediastinum: Heart size is normal, without pericardial effusion. Mild calcification of the coronary vasculature. No mediastinal or hilar adenopathy. Thoracic aorta is normal in caliber and enhancement . Esophagus is normal in caliber, without hiatal hernia. Bones and chest wall: No suspicious bony lesions. Ribs and thoracic spine appear intact throughout. No axillary or supraclavicular adenopathy. The thyroid is normal in size and there are no incident al findings. Abdomen: Visualized upper abdominal solid organs appear normal in the early arterial phase of enhanc ement. IMPRESSION: 1. No pulmonary embolus. 2. Coronary artery disease. 3. Mild bibasilar atelectasis versus pneumonia. Reviewed by: Fabi Banegas MD on 07/26/2022 8:38 AM PST Approved by: Fabi Banegas MD on 07/26/2022 8:38 AM PST Station ID: [id number]
[2022-07-26 09:16] LABS: B. PARAPERTUSSIS- RESP PCR PAN NOT DETECTED; B. PERTUSSIS- RESP PCR PANEL NOT DETECTED; C. PNEUMONIAE- RESP PCR PANEL NOT DETECTED; CORONAVIRUS 229E-RESP PCR NOT DETECTED; CORONAVIRUS HKU1-RESP PCR NOT DETECTED; CORONAVIRUS NL63-RESP PCR NOT DETECTED; CORONAVIRUS OC43-RESP PCR NOT DETECTED; HUMAN METAPNEUMOVIRUS NOT DETECTED; INFLUENZA A- RESP PCR PANEL NOT DETECTED; INFLUENZA B - RESP PCR PANEL NOT DETECTED; M. PNEUMONIAE- RESP PCR PANEL NOT DETECTED; PARAINFLUENZA VIRUS 1 NOT DETECTED; PARAINFLUENZA VIRUS 2 NOT DETECTED; PARAINFLUENZA VIRUS 3 NOT DETECTED; PARAINFLUENZA VIRUS 4 NOT DETECTED; RHINOVIRUS/ENTEROVIRUS NOT DETECTED; RSV- RESP PCR PANEL NOT DETECTED; SARS-CoV-2 -RESP PCR PANEL NOT DETECTED
[2022-07-26 10:16] LABS: MUDS CUTOFF CONCENTRATIONS CUTOFF CONC BELOW:
[2022-07-26 10:21] LABS: BILIRUBIN,URINE NEGATIVE (NEGATIVE); GLUCOSE, URINE (UA) NEGATIVE (NEGATIVE); KETONES,URINE (UA) TRACE mg/dL (NEGATIVE); LEUKOCYTE ESTERASE, URINE NEGATIVE (NEGATIVE); NITRITE,URINE NEGATIVE (NEGATIVE); OCCULT BLOOD,URINE TRACE-INTA (NEGATIVE); PROTEIN,URINE NEGATIVE (NEGATIVE); UROBILINOGEN,URINE 0.2 (NORMAL) E.U./dL (NORMAL)
[2022-07-26] MEDS ORDERED: ACETAMINOPHEN 325 MG TABLET PO PRN (10:21)
[2022-07-26] MEDS ORDERED: SODIUM CHLORIDE FLUSH 0.9% 10 ML SYRINGE IVP PRN (10:21)
[2022-07-26] MEDS ORDERED: ONDANSETRON ODT 4 MG TABLET TL PRN (10:21)
[2022-07-26] MEDS ORDERED: oxyCODONE 5 MG TABLET PO PRN ×2 (10:21→17:29)
[2022-07-26 10:24] LABS: CLARITY,URINE CLEAR (CLEAR)
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
[2022-07-26 10:33] LABS: AMPHETAMINE SCREEN,URINE NEGATIVE (NEGATIVE); BARBITURATE SCREEN,UR NEGATIVE (NEGATIVE); BENZODIAZEPINES SCREEN, URINE NEGATIVE (NEGATIVE); COCAINE SCREEN URINE NEGATIVE (NEGATIVE); METHADONE SCREEN, URINE NEGATIVE (NEGATIVE); METHAMPHETAMINES SCREEN, URINE NEGATIVE (NEGATIVE); OPIATE SCREEN, URINE POSITIVE (NEGATIVE); OXYCODONE SCREEN, URINE NEGATIVE (NEGATIVE); PROPOXYPHENE SCREEN, URINE NEGATIVE (NEGATIVE); THC CANNABINOID SCREEN, URINE POSITIVE (NEGATIVE); TRICYCLIC ANTIDEPRESSANT,URINE POSITIVE (NEGATIVE)
[2022-07-26] MEDS ORDERED: SODIUM CHLORIDE 0.9% 1,000 ML IV SCH (11:00)
--- NOTE | 2022-07-26 11:01 | XRAY Report ---
PROCEDURE: Chest 1 View X-Ray INDICATIONS: post-seizure; hypoxia TECHNIQUE: One view of the chest was acquired. COMPARISON: 07/18/2021 CT chest FINDINGS: Surgical changes and devices: Partially visualized cervical thorax and fixation rods are present. Lungs and pleura: Mild increased pulmonary vascularity. Mediastinum: Mediastinal contours appear normal. Heart size is enlarged. Bones and chest wall: No suspicious bony lesions. Overlying soft tissues appear unremarkable. IMPRESSION: Cardiomegaly with increased vascularity suggestive of edema. Underlying areas of developing pneumonia can't be excluded. The above findings are concordant with preliminary report. Reviewed by: Karmen Link MD on 07/26/2022 11:00 AM [facility] Approved by: Karmen Link MD on 07/26/2022 11:00 AM [facility] Station ID: [id number]
[2022-07-26] MEDS ORDERED: oxyCODONE 5 MG TABLET PO STA (11:25)
[2022-07-26] MEDS ORDERED: POTASSIUM CHLORIDE 20 MEQ TABLET PO ONE (14:00)
--- NOTE | 2022-07-26 14:14 | PHARMACY PROGRESS NOTE ---
- Best Possible Medication History Admit Date and Time: 07/26/22 1021 Processed by: Pharmacy Medication History completed: Yes Patient Interview: Pt unable to participate (Pt was in pain and wouldn't participate unless was present) Secondary Source(s): Spouse/Significant other As the person ultimately responsible for medication therapy, providers are able to order a medication from an existing home medication list in [facility] via the "Reconcile Routine" prior to Confirmation of that medication by emotional support teacher. Such practice is discouraged except when the physician, in their clinical judgment, deems that a medical need exists for a medication without regard to previous use.
[2022-07-26] MEDS: SODIUM CHLORIDE FLUSH 0.9% 10 ML SYRINGE IVP SCH (17:25)
[2022-07-26] MEDS: HYDROmorphone 1 MG/ML CARPUJECT IVP PRN ×3 (18:13→23:48)
[2022-07-26] MEDS: ONDANSETRON 4 MG/2 ML VIAL IVP PRN (18:20)
[2022-07-27] MEDS: SODIUM CHLORIDE FLUSH 0.9% 10 ML SYRINGE IVP SCH ×2 (00:17→10:06)
[2022-07-27] MEDS: HYDROmorphone 1 MG/ML CARPUJECT IVP PRN ×4 (02:47→10:06)
[2022-07-27 08:17] LABS: BASOPHILS # (AUTO) 0.1 10^3/uL (0.0-0.1); BASOPHILS % (AUTO) 0.4 %; EOSINOPHILS # (AUTO) 0.4 10^3/uL (0.0-0.7); EOSINOPHILS % (AUTO) 2.3 %; HCT - HEMATOCRIT 48.6 % (42.0-52.0); LYMPHOCYTES # (AUTO) 1.8 10^3/uL (1.5-3.5); LYMPHOCYTES % (AUTO) 9.8 %; MEAN CORPUSCULAR HEMOGLOBIN 30.1 pg (27.0-31.0); MEAN CORPUSCULAR HGB CONC 32.9 g/dL (32.0-36.0); MEAN CORPUSCULAR VOLUME 91.4 fL (80.0-94.0); MEAN PLATELET VOLUME 10.2 fL (7.4-11.4); MONOCYTES # (AUTO) 1.1 10^3/uL (0.0-1.0); MONOCYTES % (AUTO) 5.9 %; NEUTROPHILS # (AUTO) 14.5 10^3/uL (1.5-6.6); NEUTROPHILS % (AUTO) 81.1 %; PLT - PLATELET COUNT 345 10^3/uL (130-450); RED BLOOD COUNT 5.32 10^6/uL (4.70-6.10); RED CELL DISTRIBUTION WIDTH 14.8 % (12.0-15.0); WHITE BLOOD COUNT 17.9 x10^3/uL (4.8-10.8)
[2022-07-27 08:29] VITALS: BP 135/99
[2022-07-27 08:34] LABS: CALCIUM 8.7 mg/dL (8.5-10.3); CREATININE 0.7 mg/dL (0.6-1.2); POTASSIUM 3.8 mmol/L (3.5-5.0)
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
[2022-07-27] MEDS ORDERED: lamoTRIgine 25 MG TABLET PO SCH (12:00)
[2022-07-27] MEDS ORDERED: levETIRAcetam 250 MG TABLET PO SCH (12:00)
[2022-07-27] MEDS: ONDANSETRON 4 MG/2 ML VIAL IVP PRN (13:46)
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
== END 2022-07-27 15:00 | disposition home or self-care (01) ==
LOC: EDUNIT# → ED 04:55 → MS3 10:21 → MS2 11:28
PROVIDERS: ADMIT Specialist; ATTEND Specialist
DX: J44.9 Chronic obstructive pulmonary disease, unspecified (principal); G40.409 Other generalized epilepsy and epileptic syndromes, not intractable, without status epilepticus; G89.4 Chronic pain syndrome; R51.9 Headache, unspecified; R45.1 Restlessness and agitation; D72.829 Elevated white blood cell count, unspecified; D72.825 Bandemia; E87.6 Hypokalemia; I10 Essential (primary) hypertension; Z87.820 Personal history of traumatic brain injury; Z86.718 Personal history of other venous thrombosis and embolism; Z86.711 Personal history of pulmonary embolism; Z79.01 Long term (current) use of anticoagulants; Z87.891 Personal history of nicotine dependence; F41.9 Anxiety disorder, unspecified; Z20.822 Contact with and (suspected) exposure to COVID-19
CPT/HCPCS: 36415; 70450; 71045; 71275; 80048; 80053; 80306; 81003; 83690; 83880; 84443; 84484; 85025; 87633; 93005; 94761; 96361; 96374; 96375; 96376; 99284; 99285; A9270; G0378; G0480; J1170; Q9967; 80320; 81001; 87086